=== PATIENT | female | born 1980 | race Caucasian/White ===

== ENCOUNTER → 2017-04-10 | Outpatient (CLI) | payer OTHER | LOC: RADMRIMAIN 09:47 | PROVIDERS: ATTEND Family Medicine | DX: Z53.9 Procedure and treatment not carried out, unspecified reason (principal) ==

== ENCOUNTER 2017-12-05 18:27 | Emergency (ER) | payer OTHER ==
[2017-12-05] MEDS ORDERED: RX INFO: IV CONTRAST WAS GIVEN 1 EACH MISC MISCELLANE PRN (19:16)
[2017-12-05] MEDS ORDERED: SODIUM CHLORIDE 0.9% 1,000 ML IV STA (19:16)
--- NOTE | 2017-12-05 19:17 | ED ---
General Adult HPI - General Source: patient, RN notes reviewed, old records reviewed Mode of arrival: ambulatory Limitations: no limitations <Sharan Newton - Last Filed: 12/05/17 21:34> <Erna Mahoney - Last Filed: 12/05/17 23:14> - General Chief complaint: Dizziness Stated complaint: Dizziness,Headaches Time Seen by Provider: 12/05/17 19:09 - History of Present Illness Initial comments: This is a 37-year-old female to the ER for evaluation of headache and dizziness. Patient is not no fevers. Patient states she feels dyspneic had of near syncopal. Symptoms for 2-3 both refill at this time. Patient states the symptoms are mildly worse. She denies any other medications. She's been taking some medications for sinus infection with no improvement in her symptoms (Sharan Newton) - Related Data Home Medications Medication Instructions Recorded Confirmed Ranitidine HCl [Zantac] 150 mg PO DAILY 03/25/14 12/05/17 Loratadine [Claritin] 10 mg PO DAILY 12/05/17 12/05/17 Previous Rx's Medication Instructions Recorded Mometasone Furoate [Nasonex Nasal 1 spray EA NOSTRIL DAILY #1 bottle 12/05/17 [place]] Allergies Allergy/AdvReac Type Severity Reaction Status Date / Time prochlorperazine edisylate Allergy Unknown Verified 12/05/17 19:08 [From Compazine] prochlorperazine maleate Allergy Unknown Verified 12/05/17 19:08 [From Compazine] Review of Systems ROS Other: All systems not noted in ROS Statement are negative. <Sharan Newton - Last Filed: 12/05/17 21:34> ROS Other: All systems not noted in ROS Statement are negative. <Erna Mahoney - Last Filed: 12/05/17 23:14> ROS Statement: Those systems with pertinent positive or pertinent negative responses have been documented in the HPI. Past Medical History Past Medical History: GERD/Reflux Additional Past Medical History / Comment(s): pvc's History of Any Multi-Drug Resistant Organisms: None Reported Past Surgical History: No Surgical Hx Reported Past Psychological History: Anxiety Smoking Status: Former smoker Past Alcohol Use History: Occasional Past Drug Use History: None Reported <Sharan Newton - Last Filed: 12/05/17 21:34> General Exam Limitations: no limitations General appearance: alert, in no apparent distress Head exam: Present: atraumatic, normocephalic, normal inspection Eye exam: Present: normal appearance, PERRL, EOMI. Absent: scleral icterus, conjunctival injection, periorbital swelling ENT exam: Present: normal exam, mucous membranes moist Neck exam: Present: normal inspection. Absent: tenderness, meningismus, lymphadenopathy Respiratory exam: Present: normal lung sounds bilaterally. Absent: respiratory distress, wheezes, rales, rhonchi, stridor Cardiovascular Exam: Present: regular rate, normal rhythm, normal heart sounds. Absent: systolic murmur, diastolic murmur, rubs, gallop, clicks GI/Abdominal exam: Present: soft, normal bowel sounds. Absent: distended, tenderness, guarding, rebound, rigid Extremities exam: Present: normal inspection, full ROM, normal capillary refill. Absent: tenderness, pedal edema, joint swelling, calf tenderness Back exam: Present: normal inspection Neurological exam: Present: alert, oriented X3, CN II-XII intact Psychiatric exam: Present: normal affect, normal mood Skin exam: Present: warm, dry, intact, normal color. Absent: rash <Sharan Newton - Last Filed: 12/05/17 21:34> Course <Sharan Newton - Last Filed: 12/05/17 21:34> <Erna Mahoney - Last Filed: 12/05/17 23:14> Vital Signs 12/05/17 12/05/17 12/05/17 19:09 20:41 22:28 Temperature 98.3 F 98 F Pulse Rate 105 H 79 78 Respiratory 20 18 18 Rate Blood Pressure 162/99 132/76 130/75 O2 Sat by Pulse 99 99 98 Oximetry Patient was reassessed [place] [address] angiogram of the brain and CT brain was reviewed, it's unremarkable findings were discussed with the patient, patient was reexamined noticed some ALLERGIC rhinitis as well as mild sinusitis patient be prescribed the Nosenex and she will follow-up with her family doctor (Erna Mahoney) EKG Findings - EKG Comments: EKG Findings:: EKG shows sinus rhythm rate of 73, VT 134, QRS 92, QTc 478 <Sharan Newton - Last Filed: 12/05/17 21:34> Medical Decision Making - Lab Data Result diagrams: 12/05/17 20:15 12/05/17 20:15 <Sharan Newton - Last Filed: 12/05/17 21:34> - Lab Data Result diagrams: 12/05/17 20:15 12/05/17 20:15 <Erna Mahoney - Last Filed: 12/05/17 23:14> - Lab Data Lab Results 12/05/17 12/05/17 12/05/17 Range/Units 20:15 20:15 20:15 WBC 8.5 (3.8-10.6) k/uL RBC 4.66 (3.80-5.40) m/uL Hgb 14.1 (11.4-16.0) gm/dL Hct 42.1 (34.0-46.0) % MCV 90.3 (80.0-100.0) fL MCH 30.3 (25.0-35.0) pg MCHC 33.5 (31.0-37.0) g/dL RDW 12.7 (11.5-15.5) % Plt Count 270 (150-450) k/uL Neutrophils % 70 % Lymphocytes % 22 % Monocytes % 5 % Eosinophils % 2 % Basophils % 0 % Neutrophils # 6.0 (1.3-7.7) k/uL Lymphocytes # 1.8 (1.0-4.8) k/uL Monocytes # 0.4 (0-1.0) k/uL Eosinophils # 0.2 (0-0.7) k/uL Basophils # 0.0 (0-0.2) k/uL PT 10.3 (9.0-12.0) sec INR 1.1 (<1.2) APTT 22.6 (22.0-30.0) sec Sodium 147 H (137-145) mmol/L Potassium 3.9 (3.5-5.1) mmol/L Chloride 107 (98-107) mmol/L Carbon Dioxide 23 (22-30) mmol/L Anion Gap 17 mmol/L BUN 13 (7-17) mg/dL Creatinine 0.70 (0.52-1.04) mg/dL Est GFR (CKD-EPI)AfAm >90 (>60 ml/min/1.73 sqM) Est GFR (CKD-EPI)NonAf >90 (>60 ml/min/1.73 sqM) Glucose 95 (74-99) mg/dL Calcium 10.3 H (8.4-10.2) mg/dL Phosphorus 3.8 (2.5-4.5) mg/dL Magnesium 2.2 (1.6-2.3) mg/dL Total Bilirubin 0.5 (0.2-1.3) mg/dL AST 51 H (14-36) U/L ALT 78 H (9-52) U/L Alkaline Phosphatase 102 (38-126) U/L Total Creatine Kinase (30-135) U/L CK-MB (CK-2) (0.0-2.4) ng/mL CK-MB (CK-2) Rel Index Troponin I (0.000-0.034) ng/mL Total Protein 8.2 (6.3-8.2) g/dL Albumin 5.1 H (3.5-5.0) g/dL Urine Color Urine Appearance (Clear) Urine pH (5.0-8.0) Ur Specific [place] (1.001-1.035) Urine Protein (Negative) Urine Glucose (UA) (Negative) Urine Ketones (Negative) Urine Blood (Negative) Urine Nitrite (Negative) Urine Bilirubin (Negative) Urine Urobilinogen (<2.0) mg/dL Ur Leukocyte Esterase (Negative) Urine RBC (0-5) /hpf Urine WBC (0-5) /hpf Ur Squamous Epith Cells (0-4) /hpf Urine Mucus (None) /hpf 12/05/17 12/05/17 Range/Units 20:15 20:15 WBC (3.8-10.6) k/uL RBC (3.80-5.40) m/uL Hgb (11.4-16.0) gm/dL Hct (34.0-46.0) % MCV (80.0-100.0) fL MCH (25.0-35.0) pg MCHC (31.0-37.0) g/dL RDW (11.5-15.5) % Plt Count (150-450) k/uL Neutrophils % % Lymphocytes % % Monocytes % % Eosinophils % % Basophils % % Neutrophils # (1.3-7.7) k/uL Lymphocytes # (1.0-4.8) k/uL Monocytes # (0-1.0) k/uL Eosinophils # (0-0.7) k/uL Basophils # (0-0.2) k/uL PT (9.0-12.0) sec INR (<1.2) APTT (22.0-30.0) sec Sodium (137-145) mmol/L Potassium (3.5-5.1) mmol/L Chloride (98-107) mmol/L Carbon Dioxide (22-30) mmol/L Anion Gap mmol/L BUN (7-17) mg/dL Creatinine (0.52-1.04) mg/dL Est GFR (CKD-EPI)AfAm (>60 ml/min/1.73 sqM) Est GFR (CKD-EPI)NonAf (>60 ml/min/1.73 sqM) Glucose (74-99) mg/dL Calcium (8.4-10.2) mg/dL Phosphorus (2.5-4.5) mg/dL Magnesium (1.6-2.3) mg/dL Total Bilirubin (0.2-1.3) mg/dL AST (14-36) U/L ALT (9-52) U/L Alkaline Phosphatase (38-126) U/L Total Creatine Kinase 62 (30-135) U/L CK-MB (CK-2) <0.2 (0.0-2.4) ng/mL CK-MB (CK-2) Rel Index Troponin I <0.012 (0.000-0.034) ng/mL Total Protein (6.3-8.2) g/dL Albumin (3.5-5.0) g/dL Urine Color Light Yellow Urine Appearance Clear (Clear) Urine pH 5.0 (5.0-8.0) Ur Specific [place] 1.007 (1.001-1.035) Urine Protein Negative (Negative) Urine Glucose (UA) Negative (Negative) Urine Ketones Negative (Negative) Urine Blood Moderate H (Negative) Urine Nitrite Negative (Negative) Urine Bilirubin Negative (Negative) Urine Urobilinogen <2.0 (<2.0) mg/dL Ur Leukocyte Esterase Negative (Negative) Urine RBC 36 H (0-5) /hpf Urine WBC 12 H (0-5) /hpf Ur Squamous Epith Cells <1 (0-4) /hpf Urine Mucus Rare H (None) /hpf Disposition <Sharan Newton - Last Filed: 12/05/17 21:34> Is patient prescribed a controlled substance at d/c from ED?: No If prescribed controlled substance>3 days was MAPS reviewed?: No When asked, does pt state using other controlled substances?: No <Erna Mahoney - Last Filed: 12/05/17 23:14> Clinical Impression: Allergic rhinitis Disposition: HOME SELF-CARE Condition: Good Instructions: Dizziness (ED) Prescriptions: Mometasone Furoate [Nasonex Nasal [place]] 1 spray EA NOSTRIL DAILY #1 bottle Referrals: Solo Petty MD [Primary Care Provider] - 1-2 days
[2017-12-05 20:23] LABS: Basophils % (A) 0 %; Eosinophils # (A) 0.2 k/uL (0-0.7); Eosinophils % (A) 2 %; HCT 42.1 % (34.0-46.0); HGB 14.1 gm/dL (11.4-16.0); Lymphocytes # (A) 1.8 k/uL (1.0-4.8); Lymphocytes % (A) 22 %; MCH 30.3 pg (25.0-35.0); MCHC 33.5 g/dL (31.0-37.0); MCV 90.3 fL (80.0-100.0); Monocytes # (A) 0.4 k/uL (0-1.0); Monocytes % (A) 5 %; Neutrophils % (A) 70 %; Platelet Count 270 k/uL (150-450); RBC 4.66 m/uL (3.80-5.40); RDW 12.7 % (11.5-15.5); WBC 8.5 k/uL (3.8-10.6)
[2017-12-05 20:28] LABS: Appearance,Urine Clear (Clear); Bilirubin,Urine Negative (Negative); Blood,Urine Moderate (Negative); Color,Urine Light Yellow; Glucose,Urine (UA) Negative (Negative); Ketones,Urine Negative (Negative); Leukocyte Esterase,Urine Negative (Negative); Mucus,Urine Rare /hpf; Nitrite,Urine Negative (Negative); Protein,Urine Negative (Negative); RBC,Urine 36 /hpf (0-5); Specific Gravity,Urine 1.007 (1.001-1.035); Squamous Epithelial Cell,Urine <1 /hpf (0-4); Urobilinogen,Urine <2.0 mg/dL (<2.0); WBC,Urine 12 /hpf (0-5)
[2017-12-05 20:33] LABS: INR 1.1 (<1.2); Partial Thromboplastin Time 22.6 sec (22.0-30.0); Prothrombin Time 10.3 sec (9.0-12.0)
[2017-12-05 20:34] LABS: ALT 78 U/L (9-52); AST 51 U/L (14-36); Albumin 5.1 g/dL (3.5-5.0); Alkaline Phosphatase 102 U/L (38-126); Anion Gap 17 mmol/L; Blood Urea Nitrogen 13 mg/dL (7-17); Calcium 10.3 mg/dL (8.4-10.2); Carbon Dioxide 23 mmol/L (22-30); Chloride 107 mmol/L (98-107); Glucose 95 mg/dL (74-99); Magnesium 2.2 mg/dL (1.6-2.3); Phosphorus 3.8 mg/dL (2.5-4.5); Potassium 3.9 mmol/L (3.5-5.1); Sodium 147 mmol/L (137-145); Total Bilirubin 0.5 mg/dL (0.2-1.3); Total Protein 8.2 g/dL (6.3-8.2)
[2017-12-05 20:41] VITALS: RESP 18
[2017-12-05 20:45] LABS: Creatine Kinase 62 U/L (30-135)
[2017-12-05 20:58] LABS: Creatine Kinase MB <0.2 ng/mL (0.0-2.4); Troponin I <0.012 ng/mL (0.000-0.034)
--- NOTE | 2017-12-05 22:21 | CT ---
EXAMINATION TYPE: CT angio head neck DATE OF EXAM: 12/05/2017 HISTORY: Headache today. COMPARISON: NONE CT DLP: 219.3 mGycm. Automated Exposure Control for Dose Reduction was Utilized. TECHNIQUE: CTA scan of the neck is performed with IV Contrast, patient injected with 65 mL of Isovue 370, axial images are obtained, coronal and sagittal reformatted images are reviewed. Three-D recons tructed images are created on an independent workstation and reviewed. FINDINGS: There is normal branching pattern of the great vessels on the aortic arch. The left carotid artery hill s origin on the innominate artery. There is bilateral vertebral artery flow. Left vertebral artery sl ightly larger than the right. There is arterial flow in the common internal and external carotid harrison radhika bilaterally. There is no evidence of arterial dissection. Internal carotid arteries are widely p atent. There is arterial flow in the vertebrobasilar artery system. There is arterial flow in the anterior m iddle and posterior cerebral arteries. There is no mass effect. There is no sign of aneurysm or neova scularity. There is normal contrast opacification of the venous sinuses. There is bilateral patency o f the posterior communicating arteries. I see no evidence of intracranial aneurysm or stenosis. There is no evidence of a cortical infarct. There is no pathologic enhancement. CONCLUSION: Normal CT angiogram of the neck. Normal CT aneurysm of the brain.
--- NOTE | 2017-12-05 22:23 | CT ---
EXAMINATION TYPE: CT brain wo con DATE OF EXAM: 12/05/2017 COMPARISON: NONE HISTORY: Headache today. CT DLP: 934 mGycm. Automated Exposure Control for Dose Reduction was Utilized. TECHNIQUE: CT scan of the head is performed without contrast. FINDINGS: Ventricles and sulci appear normal. There is no mass effect nor midline shift. There is no sign of intracranial hemorrhage. The calvarium is intact. There is some debris in the external audito ry canals. CONCLUSION: negative CT scan of the brain.
[2017-12-05 22:28] VITALS: BP 130/75; PULSE 78; TEMP 98
== END 2017-12-05 23:20 | disposition home or self-care (01) ==
LOC: EC 18:27
DX: J30.9 Allergic rhinitis, unspecified (principal); K21.9 Gastro-esophageal reflux disease without esophagitis; Z87.891 Personal history of nicotine dependence; Z79.899 Other long term (current) drug therapy; Z88.8 Allergy status to other drugs, medicaments and biological substances
CPT/HCPCS: 36415; 93005; 80053; 82550; 82553; 83735; 84100; 84484; 85025; 85610; 85730; 81001; 87086; 70496; 70450; 70498; 99285; 96360; Q9967

== ENCOUNTER → 2018-01-07 | Outpatient (CLI) | payer OTHER ==
--- NOTE | 2018-01-07 09:48 | US ---
EXAMINATION TYPE: US gallbladder DATE OF EXAM: 01/07/2018 COMPARISON: NONE CLINICAL HISTORY: R10.9 ABD Pain, R10.10 upper abdominal pain. Upper abd pain for a few months, naus ea, history of reflux. EXAM MEASUREMENTS: Liver Length: 14.9 cm Gallbladder Wall: 0.5 cm CBD: 0.6 cm Right Kidney: 9.8 x 5.2 x 4.6 cm Pancreas: wnl Liver: wnl Gallbladder: +ANIYA sign seen, multiple shadowing stones with thickened wall Evidence for sonographic Cantu's sign: NO CBD: wnl Right Kidney: inferior pole simple cyst = 1.1cm Visualized pancreas is slightly heterogeneous without obvious mass. Visualized liver shows no worriso me hepatic mass or ductal dilatation. Some heterogeneity however is present. Scanning of level of gal lbladder fossa shows curvilinear shadowing area felt to reflect a stone filled contracted gallbladder . Wall may be mildly thickened up to 5 mm though difficult to accurately measure. No pericholecystic fluid is seen. IMPRESSION: Suspect stone filled contracted gallbladder without convincing secondary ultrasound evide nce for acute cholecystitis however in patient with right upper quadrant pain it cannot BE entirely e xcluded.
--- NOTE | 2018-01-07 09:56 | FL ---
EXAMINATION TYPE: FL UGI air DATE OF EXAM: 01/07/2018 COMPARISON: NONE HISTORY: Epigastric pain and nausea for 3 months. History of reflux on daily medication for over a ye ar per patient. TECHNIQUE: A double contrast UGI study is performed. 46 seconds of fluoroscopic time was utilized du ring procedure. Preprocedure coordinator of genetic services image was acquired. 26 spot images are saved during procedure. 3 p ost procedure images are acquired. FINDINGS: Textile Coating Machine Operator image of the abdomen shows overall nonobstructive bowel gas pattern. Scattered pelvi c phleboliths and pelvic IUD are incidentally noted. The esophagus shows normal motility and emptying into the stomach. No evidence of hiatal hernia or s tricture noted. The stomach shows normal distensibility, peristalsis, and mucosal folds. No evidence of any mass or ulcer disease. Several episodes of gastroesophageal reflux were seen during real-time performance of study. The duodenal bulb, sweep, and proximal small bowel loops are unremarkable. IMPRESSION: Gastroesophageal reflux visualized otherwise unremarkable study.
== END | disposition home or self-care (01) ==
LOC: RADUSMAIN 08:27
PROVIDERS: ATTEND Family Medicine
DX: R10.10 Upper abdominal pain, unspecified (principal)
CPT/HCPCS: 74246; 76705

== ENCOUNTER → 2018-02-11 | Outpatient (CLI) | payer OTHER ==
[2018-02-11 14:30] LABS: ALT 42 U/L (9-52); AST 24 U/L (14-36); Albumin 4.9 g/dL (3.5-5.0); Alkaline Phosphatase 69 U/L (38-126); Amylase 46 U/L (30-110); Anion Gap 11 mmol/L; Basophils % (A) 0 %; Blood Urea Nitrogen 10 mg/dL (7-17); Calcium 10.2 mg/dL (8.4-10.2); Carbon Dioxide 28 mmol/L (22-30); Chloride 101 mmol/L (98-107); Eosinophils # (A) 0.1 k/uL (0-0.7); Eosinophils % (A) 1 %; Glucose 92 mg/dL (74-99); HCT 39.9 % (34.0-46.0); HGB 13.2 gm/dL (11.4-16.0); Lipase 86 U/L (23-300); Lymphocytes # (A) 1.7 k/uL (1.0-4.8); Lymphocytes % (A) 26 %; MCH 30.8 pg (25.0-35.0); MCHC 33.2 g/dL (31.0-37.0); MCV 92.6 fL (80.0-100.0); Mean Platelet Volume 7.8; Monocytes # (A) 0.3 k/uL (0-1.0); Monocytes % (A) 5 %; Neutrophils # (A) 4.4 k/uL (1.3-7.7); Neutrophils % (A) 66 %; Platelet Count 285 k/uL (150-450); Potassium 4.5 mmol/L (3.5-5.1); RDW 13.1 % (11.5-15.5); Sodium 140 mmol/L (137-145); Total Bilirubin 0.5 mg/dL (0.2-1.3); Total Protein 7.8 g/dL (6.3-8.2); WBC 6.6 k/uL (3.8-10.6)
== END | disposition home or self-care (01) ==
LOC: LABWHC1 13:50
PROVIDERS: ATTEND Family Medicine
DX: R10.9 Unspecified abdominal pain (principal); R53.83 Other fatigue
CPT/HCPCS: 36415; 80053; 82150; 83690; 85025

== ENCOUNTER → 2018-10-13 | Outpatient (CLI) | payer OTHER ==
--- NOTE | 2018-10-13 15:55 | US ---
EXAMINATION TYPE: US pelvic complete DATE OF EXAM: 10/13/2018 COMPARISON: NONE CLINICAL HISTORY: N93.8 DUB. cycles still come at regular time, but appears to be heavier, IUD in charles ce 2 years ago, TECHNIQUE: TA. Transabdominal sonographic images of the pelvis were acquired. Date of LMP: 10/05/2018 EXAM MEASUREMENTS: Uterus: 11.1 x 5.7 x 4.8 cm Endometrial Stripe: 0.9 cm Right Ovary: 3.2 x 2.1 x 2.1 cm Left Ovary: 3.5 x 2.1 x 2.3 cm 1. Uterus: Anteverted wnl 2. Endometrium: IUD seen 3. Right Ovary: wnl 4. Left Ovary: wnl 5. Bilateral Adnexa: wnl 6. Posterior cul-de-sac: wnl IMPRESSION: Centrally and appropriately placed intrauterine device. No abnormal endometrial thickenin g.
[2018-10-13 17:09] LABS: T4, Free (Free Thyroxine) 0.91 ng/dL (0.78-2.19)
== END | disposition home or self-care (01) ==
LOC: RADUSWWP 15:25
PROVIDERS: ATTEND Obstetrics & Gynecology
DX: N93.8 Other specified abnormal uterine and vaginal bleeding (principal); Z13.29 Encounter for screening for other suspected endocrine disorder; Z97.5 Presence of (intrauterine) contraceptive device
CPT/HCPCS: 36415; 76856; 82670; 83001; 83002; 84146; 84403; 84439; 84443; 84479

== ENCOUNTER 2019-03-27 08:33 | Day surgery (SDC) | payer OTHER ==
[2019-03-24 09:14] VITALS: BMI 25.8
[~2019-03-27 08:33] MED LIST: LACTATED RINGERS 1,000 ML IV SCH; LIDOCAINE 1% 20 ML VIAL (10MG/ML) FOR IV START INTRADERMA PRN
[2019-03-27 09:10] VITALS: TEMP 97.1
[2019-03-27] MEDS ORDERED: PROPOFOL 10 MG/ML 20 ML VIAL IV ONE (09:34)
[2019-03-27] MEDS ORDERED: LIDOCAINE 1% INJ 10MG/ML (20 ML MDV) ONE (09:34)
--- NOTE | 2019-03-27 09:45 | P.GSHP ---
History of Present Illness H&P Date: 03/27/19 Chief Complaint: GERD This is a 39-year-old female with issues with GERD. Patient presents today for EGD. Past Medical History Past Medical History: GERD/Reflux Additional Past Medical History / Comment(s): pvc's, History of Any Multi-Drug Resistant Organisms: None Reported Past Surgical History: Cholecystectomy, Hernia Repair Additional Past Surgical History / Comment(s): umbilical hernia repair as Past Anesthesia/Blood Transfusion Reactions: Motion Sickness Additional Past Anesthesia/Blood Transfusion Reaction / Comment(s): clausterphobia. Smoking Status: Former smoker - Past Family History Mother Family Medical History: Myocardial Infarction ([place]) Additional Family Medical History / Comment(s): had first mi at ge 50 or 51 and 2nd mi at 55 or 56. smoker, brain anuerysm Father History Unknown: Yes Medications and Allergies Home Medications Medication Instructions Recorded Confirmed Type Allergy Eye Drops 1 drop BOTH EYES DAILY 03/24/19 03/27/19 History Loratadine [Claritin] 10 mg PO DAILY 03/24/19 03/27/19 History Multivitamins, Thera [Multivitamin 1 tab PO DAILY 03/24/19 03/27/19 History (formulary)] Nasal [place] 1 spray EA NOSTRIL DAILY 03/24/19 03/27/19 History Reflux Med 1 tab PO DAILY 03/24/19 03/27/19 History Allergies Allergy/AdvReac Type Severity Reaction Status Date / Time prochlorperazine edisylate Allergy Unknown Verified 03/27/19 08:47 [From Compazine] prochlorperazine maleate Allergy Unknown Verified 03/27/19 08:47 [From Compazine] Surgical - Exam Vital Signs Temp Pulse Resp BP Pulse Ox 97.1 F L 78 16 135/76 100 03/27/19 08:54 03/27/19 08:54 03/27/19 08:54 03/27/19 08:54 03/27/19 08:54 - General well developed, well nourished, no distress - Eyes PERRL - ENT normal pinna - Neck no masses - Respiratory normal expansion - Cardiovascular Rhythm: regular - Abdomen Abdomen: soft, non tender Assessment and Plan Assessment: GERD. We'll perform EGD.
--- NOTE | 2019-03-27 09:52 | P.OP ---
Date of Procedure: 03/27/19 Preoperative Diagnosis: GERD Postoperative Diagnosis: Antral gastritis No evidence of hiatal hernia Procedure(s) Performed: EGD Anesthesia: MAC Surgeon: Nicola Magallanes Pathology: other (Antrum) Condition: stable Disposition: PACU Description of Procedure: The patient's placed on the endoscopy table in the lateral position. She received IV sedation. The gastroscope placed oropharynx and passed in the esophagus into the stomach. Scope was then placed through the pylorus. The first and second portion of duodenum appeared normal. Scope was then brought back the antrum and this was mildly inflamed. A biopsies performed. Scope was unretroflexed and remainder of the stomach appeared normal. There is no significant hiatal hernia. The GE junction was at 40 cm. The distal esophagus appeared normal. The proximal esophagus appeared normal. Scope withdrawn for patient.
[2019-03-27 10:24] VITALS: BP 130/90; PULSE 72; RESP 18
== END 2019-03-27 10:31 | disposition home or self-care (01) ==
LOC: ORWHC2ENDO 08:33
PROVIDERS: ATTEND Surgery
DX: K29.50 Unspecified chronic gastritis without bleeding (principal); K21.9 Gastro-esophageal reflux disease without esophagitis; F41.9 Anxiety disorder, unspecified; F40.240 Claustrophobia; Z79.899 Other long term (current) drug therapy; Z88.8 Allergy status to other drugs, medicaments and biological substances; Z87.891 Personal history of nicotine dependence; Z86.79 Personal history of other diseases of the circulatory system; Z90.49 Acquired absence of other specified parts of digestive tract; Z98.890 Other specified postprocedural states; Z82.49 Family history of ischemic heart disease and other diseases of the circulatory system
CPT/HCPCS: 43239; 81025; 88305; J2001; J2704

== ENCOUNTER 2019-08-08 04:42 | Emergency (ER) | payer BC, OTHER ==
[2019-08-08 04:51] VITALS: RESP 18
--- NOTE | 2019-08-08 05:34 | ED ---
Chest Pain HPI - General Source: patient Mode of arrival: ambulatory Limitations: no limitations - History of Present Illness MD Complaint: chest pain Onset/Timin -: month(s) Onset: during rest Pain Location: substernal Pain Radiation: LUE Severity: moderate Quality: aching Consistency: constant Improves With: nothing Worsens With: nothing Treatments Prior to Arrival: none <Mehrdad Valdez - Last Filed: 08/08/19 07:28> <Sharan Stack - Last Filed: 08/08/19 08:36> - General Chief Complaint: Chest Pain Stated Complaint: Chest Pain Time Seen by Provider: 08/08/19 05:06 - Related Data Home Medications Medication Instructions Recorded Confirmed Allergy Eye Drops 1 drop BOTH EYES DAILY 03/24/19 03/27/19 Loratadine [Claritin] 10 mg PO DAILY 03/24/19 03/27/19 Multivitamins, Thera [Multivitamin 1 tab PO DAILY 03/24/19 03/27/19 (formulary)] Nasal [place] 1 spray EA NOSTRIL DAILY 03/24/19 03/27/19 Reflux Med 1 tab PO DAILY 03/24/19 03/27/19 Previous Rx's Medication Instructions Recorded Famotidine [Pepcid] 20 mg PO BID #14 tablet 08/08/19 Allergies Allergy/AdvReac Type Severity Reaction Status Date / Time prochlorperazine edisylate Allergy Unknown Verified 03/27/19 08:47 [From Compazine] prochlorperazine maleate Allergy Unknown Verified 03/27/19 08:47 [From Compazine] Review of Systems ROS Other: All systems not noted in ROS Statement are negative. Constitutional: Denies: fever, chills Respiratory: Denies: cough, dyspnea Cardiovascular: Reports: as per HPI, chest pain. Denies: palpitations, edema, syncope Gastrointestinal: Denies: abdominal pain, nausea, vomiting Genitourinary: Denies: dysuria Musculoskeletal: Denies: back pain Skin: Denies: rash Neurological: Denies: headache, weakness, numbness <Mehrdad Valdez - Last Filed: 08/08/19 07:28> ROS Other: All systems not noted in ROS Statement are negative. <Sharan Stack - Last Filed: 08/08/19 08:36> ROS Statement: Those systems with pertinent positive or pertinent negative responses have been documented in the HPI. EKG Findings - EKG Results: EKG: interpreted by ERMD, sinus rhythm (Rate 78 bpm), normal axis, normal QRS, normal ST/T - Blocks, Vaughan, Hypertrophy, ST Abn: Repolarization changes or abnormalities: Q-T interval prolongation <SantiagoMehrdad armendariz Last Filed: 08/08/19 07:28> Past Medical History Past Medical History: GERD/Reflux Additional Past Medical History / Comment(s): pvc's, History of Any Multi-Drug Resistant Organisms: None Reported Past Surgical History: Cholecystectomy, Hernia Repair Additional Past Surgical History / Comment(s): umbilical hernia repair as Past Anesthesia/Blood Transfusion Reactions: Motion Sickness Additional Past Anesthesia/Blood Transfusion Reaction / Comment(s): clausterphobia. Past Psychological History: Anxiety Smoking Status: Former smoker Past Alcohol Use History: Occasional Past Drug Use History: None Reported - Past Family History Mother Family Medical History: Myocardial Infarction ([place]) Additional Family Medical History / Comment(s): had first mi at ge 50 or 51 and 2nd mi at 55 or 56. smoker, brain anuerysm Father History Unknown: Yes <SantiagoMehrdad armendariz Last Filed: 08/08/19 07:28> General Exam Limitations: no limitations General appearance: alert, in no apparent distress Head exam: Present: atraumatic, normocephalic Eye exam: Present: normal appearance. Absent: scleral icterus, conjunctival injection Respiratory exam: Present: normal lung sounds bilaterally. Absent: respiratory distress, wheezes, rales, rhonchi, stridor, chest wall tenderness, accessory muscle use, decreased breath sounds, prolonged expiratory Cardiovascular Exam: Present: regular rate, normal rhythm, normal heart sounds. Absent: systolic murmur, diastolic murmur, rubs, gallop GI/Abdominal exam: Present: soft. Absent: distended, tenderness, guarding, rebound, rigid, mass Extremities exam: Present: normal inspection, normal capillary refill. Absent: pedal edema, calf tenderness Back exam: Present: normal inspection. Absent: CVA tenderness (R), CVA tenderness (L), vertebral tenderness Neurological exam: Present: alert Skin exam: Present: warm, dry, intact, normal color. Absent: rash <José MiguelMehrdad - Last Filed: 08/08/19 07:28> Course Vital Signs 08/08/19 08/08/19 08/08/19 04:46 06:09 08:21 Temperature 97.8 F 98.7 F Pulse Rate 95 73 95 Respiratory 18 18 18 Rate Blood Pressure 157/99 118/77 124/68 O2 Sat by Pulse 100 100 99 Oximetry Chest Pain MDM <Sharan Stack - Last Filed: 08/08/19 08:36> - MDM I went into reevaluate the patient. Patient's been asymptomatic. Patient states she normally gets this chest discomfort for just a few seconds and then it goes away. Patient states she also occasionally has palpitations with it and she has a history of PVCs. Patient denies any other associated symptoms with this pain. (Sharan Stack) Disposition Is patient prescribed a controlled substance at d/c from ED?: No <Mehrdad Valdez - Last Filed: 08/08/19 07:28> Is patient prescribed a controlled substance at d/c from ED?: No Time of Disposition: 08:36 <Sharan Stack - Last Filed: 08/08/19 08:36> Clinical Impression: Atypical chest pain, Palpitations, Prolonged Q-T interval on ECG Disposition: HOME SELF-CARE Condition: Good Instructions (If sedation given, give patient instructions): Heart Palpitations (ED) Prescriptions: Famotidine [Pepcid] 20 mg PO BID #14 tablet Referrals: None,Stated [Primary Care Provider] - 1-2 days
--- NOTE | 2019-08-08 05:47 | XR ---
EXAMINATION TYPE: XR chest 2V DATE OF EXAM: 08/08/2019 COMPARISON: 07/04/2018 HISTORY: Lethargy TECHNIQUE: 2 views FINDINGS: Heart and mediastinum are normal. Lungs are clear. Diaphragm is normal. Bony thorax appears normal. IMPRESSION: Normal chest. No change.
[2019-08-08 06:28] LABS: Basophils % (A) 1 %; Eosinophils # (A) 0.3 k/uL (0-0.7); Eosinophils % (A) 3 %; HCT 38.4 % (34.0-46.0); HGB 13.1 gm/dL (11.4-16.0); Lymphocytes # (A) 1.8 k/uL (1.0-4.8); Lymphocytes % (A) 22 %; MCH 31.3 pg (25.0-35.0); MCHC 34.2 g/dL (31.0-37.0); MCV 91.5 fL (80.0-100.0); Mean Platelet Volume 10.4; Monocytes # (A) 0.4 k/uL (0-1.0); Monocytes % (A) 6 %; Neutrophils # (A) 5.3 k/uL (1.3-7.7); Neutrophils % (A) 67 %; Platelet Count 189 k/uL (150-450); RDW 13.1 % (11.5-15.5)
[2019-08-08 08:05] LABS: ALT 22 U/L (4-34); AST 37 U/L (14-36); African American GFR (CKD) >90 (>60 ml/min/1.73 sqM); Albumin 4.7 g/dL (3.5-5.0); Alkaline Phosphatase 75 U/L (38-126); Anion Gap 12 mmol/L; Blood Urea Nitrogen 12 mg/dL (7-17); Calcium 9.6 mg/dL (8.4-10.2); Carbon Dioxide 21 mmol/L (22-30); Chloride 105 mmol/L (98-107); Glucose 96 mg/dL (74-99); Magnesium 2.1 mg/dL (1.6-2.3); Non-African American GFR(CKD) >90 (>60 ml/min/1.73 sqM); Sodium 138 mmol/L (137-145); Total Bilirubin 0.7 mg/dL (0.2-1.3); Total Protein 7.8 g/dL (6.3-8.2)
[2019-08-08 08:06] LABS: Potassium 4.8 mmol/L (3.5-5.1)
[2019-08-08 08:10] LABS: D-Dimer 0.46 mg/L FEU (<0.60); INR 0.9 (<1.2); Partial Thromboplastin Time 24.6 sec (22.0-30.0); Prothrombin Time 10.1 sec (9.0-12.0)
[2019-08-08 08:22] VITALS: BP 124/68; PULSE 95; TEMP 98.7
== END 2019-08-08 08:46 | disposition home or self-care (01) ==
LOC: EC 04:42
DX: R07.89 Other chest pain (principal); R00.2 Palpitations; R94.31 Abnormal electrocardiogram [ECG] [EKG]; K21.9 Gastro-esophageal reflux disease without esophagitis; Z86.79 Personal history of other diseases of the circulatory system; Z87.891 Personal history of nicotine dependence; Z82.49 Family history of ischemic heart disease and other diseases of the circulatory system; Z79.899 Other long term (current) drug therapy; Z88.8 Allergy status to other drugs, medicaments and biological substances
CPT/HCPCS: 36415; 71046; 80053; 83735; 83880; 84484; 85025; 85379; 85610; 85730; 93005; 99285

== ENCOUNTER 2020-05-15 17:15 | Observation (INO) | payer OTHER ==
[2020-05-15] MEDS ORDERED: NITROGLYCERIN OINT 1 INCH/GM PACKET TOPICAL STA (17:37)
[2020-05-15] MEDS ORDERED: SODIUM CHLORIDE 0.9% 1,000 ML IV STA (17:37)
--- NOTE | 2020-05-15 17:39 | ED ---
General Adult HPI - General Chief complaint: Chest Pain Stated complaint: chest pain Time Seen by Provider: 05/15/20 17:23 Source: patient, RN/MD, RN notes reviewed, old records reviewed (Reviewed EKG from Dr. Morataya.) Mode of arrival: wheelchair Limitations: no limitations - History of Present Illness Initial comments: Patient is a pleasant 40-year-old female presenting to the emergency department chest discomfort. Patient has had mild symptoms over the past couple months, worse over the past few days. Discomfort is currently 2/10. Discomfort feels like indigestion without radiation. No associated dyspnea. Patient at times feels nauseated. No diaphoresis. - Related Data Home Medications Medication Instructions Recorded Confirmed Aspirin [Adult Low Dose Aspirin EC] 81 mg PO DAILY 05/15/20 05/15/20 Omeprazole Magnesium [PriLOSEC OTC] 20 mg PO DAILY 05/15/20 05/15/20 Allergies Allergy/AdvReac Type Severity Reaction Status Date / Time prochlorperazine edisylate Allergy Unknown Verified 05/15/20 18:26 [From Compazine] prochlorperazine maleate Allergy Unknown Verified 05/15/20 18:26 [From Compazine] Review of Systems ROS Statement: Those systems with pertinent positive or pertinent negative responses have been documented in the HPI. ROS Other: All systems not noted in ROS Statement are negative. Constitutional: Denies: fever Eyes: Denies: eye pain ENT: Denies: ear pain Respiratory: Denies: cough Cardiovascular: Reports: chest pain Endocrine: Denies: fatigue Gastrointestinal: Denies: abdominal pain Genitourinary: Denies: dysuria Musculoskeletal: Denies: back pain Skin: Denies: rash Neurological: Denies: weakness Past Medical History Past Medical History: GERD/Reflux Additional Past Medical History / Comment(s): pvc's, History of Any Multi-Drug Resistant Organisms: None Reported Past Surgical History: Cholecystectomy, Hernia Repair Additional Past Surgical History / Comment(s): umbilical hernia repair as Past Anesthesia/Blood Transfusion Reactions: Motion Sickness Additional Past Anesthesia/Blood Transfusion Reaction / Comment(s): clausterphobia. Past Psychological History: Anxiety Smoking Status: Never smoker Past Alcohol Use History: Occasional Past Drug Use History: None Reported - Past Family History Mother Family Medical History: Myocardial Infarction ([place]) Additional Family Medical History / Comment(s): had first mi at 50 or 51 and 2nd mi at 55 or 56. smoker, brain anuerysm Father History Unknown: Yes General Exam Limitations: no limitations General appearance: alert, in no apparent distress Head exam: Present: normocephalic Eye exam: Present: normal appearance Neck exam: Present: normal inspection Respiratory exam: Present: normal lung sounds bilaterally. Absent: chest wall tenderness, accessory muscle use Cardiovascular Exam: Present: regular rate, normal rhythm, normal heart sounds Expanded Peripheral pulses: 2+: Radial (R), Radial (L), Dorsalis Pedis (R), Dorsalis Pedis (L) GI/Abdominal exam: Present: soft. Absent: tenderness Extremities exam: Present: normal inspection. Absent: pedal edema, calf tenderness Neurological exam: Present: alert Psychiatric exam: Present: normal affect, normal mood Skin exam: Present: normal color Course Vital Signs 05/15/20 05/15/20 17:18 18:53 Temperature 99.0 F Pulse Rate 99 101 H Respiratory 18 16 Rate Blood Pressure 144/90 124/81 O2 Sat by Pulse 100 99 Oximetry EKG Findings - EKG Comments: EKG Findings:: EKG shows normal sinus rhythm 83. [place] 132. QRS 84. QT 404. QTC 474. Normal axis. Normal QRS. Nonspecific ST-T. Medical Decision Making - Medical Decision Making Patient reevaluated and remains unchanged, symptoms remain mild, 2/10 discomfort. Patient and family updated on results and plan. Dr. Delcid has been paged for admission covering for Dr. Morataya. - Lab Data Result diagrams: 05/15/20 17:37 05/15/20 17:37 Lab Results 05/15/20 05/15/20 05/15/20 Range/Units 17:37 17:37 17:37 WBC 10.1 (3.8-10.6) k/uL RBC 4.36 (3.80-5.40) m/uL Hgb 13.4 (11.4-16.0) gm/dL Hct 40.6 (34.0-46.0) % MCV 93.0 (80.0-100.0) fL MCH 30.7 (25.0-35.0) pg MCHC 33.0 (31.0-37.0) g/dL RDW 12.7 (11.5-15.5) % Plt Count 244 (150-450) k/uL Neutrophils % 81 % Lymphocytes % 13 % Monocytes % 4 % Eosinophils % 1 % Basophils % 0 % Neutrophils # 8.2 H (1.3-7.7) k/uL Lymphocytes # 1.4 (1.0-4.8) k/uL Monocytes # 0.4 (0-1.0) k/uL Eosinophils # 0.1 (0-0.7) k/uL Basophils # 0.0 (0-0.2) k/uL PT 9.9 (9.0-12.0) sec INR 0.9 (<1.2) APTT 24.5 (22.0-30.0) sec Sodium 138 (137-145) mmol/L Potassium 3.9 (3.5-5.1) mmol/L Chloride 107 (98-107) mmol/L Carbon Dioxide 23 (22-30) mmol/L Anion Gap 8 mmol/L BUN 9 (7-17) mg/dL Creatinine 0.66 (0.52-1.04) mg/dL Est GFR (CKD-EPI)AfAm >90 (>60 ml/min/1.73 sqM) Est GFR (CKD-EPI)NonAf >90 (>60 ml/min/1.73 sqM) Glucose 102 H (74-99) mg/dL Calcium 9.7 (8.4-10.2) mg/dL Magnesium 2.1 (1.6-2.3) mg/dL Total Bilirubin 0.4 (0.2-1.3) mg/dL AST 24 (14-36) U/L ALT 18 (4-34) U/L Alkaline Phosphatase 64 (38-126) U/L Troponin I (0.000-0.034) ng/mL Total Protein 7.6 (6.3-8.2) g/dL Albumin 4.7 (3.5-5.0) g/dL 05/15/20 Range/Units 17:37 WBC (3.8-10.6) k/uL RBC (3.80-5.40) m/uL Hgb (11.4-16.0) gm/dL Hct (34.0-46.0) % MCV (80.0-100.0) fL MCH (25.0-35.0) pg MCHC (31.0-37.0) g/dL RDW (11.5-15.5) % Plt Count (150-450) k/uL Neutrophils % % Lymphocytes % % Monocytes % % Eosinophils % % Basophils % % Neutrophils # (1.3-7.7) k/uL Lymphocytes # (1.0-4.8) k/uL Monocytes # (0-1.0) k/uL Eosinophils # (0-0.7) k/uL Basophils # (0-0.2) k/uL PT (9.0-12.0) sec INR (<1.2) APTT (22.0-30.0) sec Sodium (137-145) mmol/L Potassium (3.5-5.1) mmol/L Chloride (98-107) mmol/L Carbon Dioxide (22-30) mmol/L Anion Gap mmol/L BUN (7-17) mg/dL Creatinine (0.52-1.04) mg/dL Est GFR (CKD-EPI)AfAm (>60 ml/min/1.73 sqM) Est GFR (CKD-EPI)NonAf (>60 ml/min/1.73 sqM) Glucose (74-99) mg/dL Calcium (8.4-10.2) mg/dL Magnesium (1.6-2.3) mg/dL Total Bilirubin (0.2-1.3) mg/dL AST (14-36) U/L ALT (4-34) U/L Alkaline Phosphatase (38-126) U/L Troponin I <0.012 (0.000-0.034) ng/mL Total Protein (6.3-8.2) g/dL Albumin (3.5-5.0) g/dL Disposition Clinical Impression: Chest pain Disposition: ADMITTED IP TO THIS HOSP Is patient prescribed a controlled substance at d/c from ED?: No Referrals: Negrita Morataya MD [Primary Care Provider] - 1-2 days Decision Time: 20:04
[2020-05-15] MEDS: ASPIRIN 81 MG PO STA ×2 (18:14→18:38)
[2020-05-15 18:54] VITALS: RESP 16
--- NOTE | 2020-05-15 19:03 | XR ---
EXAMINATION TYPE: XR chest 2V DATE OF EXAM: 05/15/2020 CLINICAL HISTORY: Midsternal chest pain for 5 to 6 days. TECHNIQUE: Frontal and lateral views of the chest are obtained. COMPARISON: 08/08/2019 chest radiograph FINDINGS: The cardiomediastinal silhouette is within normal limits for size. Pulmonary vasculature i s normal. There is no focal air space opacity, pleural effusion, or pneumothorax seen. The osseous st ructures are intact. IMPRESSION: No acute cardiopulmonary process.
[2020-05-15 19:24] LABS: Basophils % (A) 0 %; Eosinophils # (A) 0.1 k/uL (0-0.7); Eosinophils % (A) 1 %; HCT 40.6 % (34.0-46.0); HGB 13.4 gm/dL (11.4-16.0); Lymphocytes # (A) 1.4 k/uL (1.0-4.8); Lymphocytes % (A) 13 %; MCH 30.7 pg (25.0-35.0); Mean Platelet Volume 8.5; Monocytes # (A) 0.4 k/uL (0-1.0); Monocytes % (A) 4 %; Neutrophils # (A) 8.2 k/uL (1.3-7.7); Neutrophils % (A) 81 %; Platelet Count 244 k/uL (150-450); RBC 4.36 m/uL (3.80-5.40); RDW 12.7 % (11.5-15.5); WBC 10.1 k/uL (3.8-10.6)
[2020-05-15 19:35] LABS: ALT 18 U/L (4-34); AST 24 U/L (14-36); African American GFR (CKD) >90 (>60 ml/min/1.73 sqM); Albumin 4.7 g/dL (3.5-5.0); Alkaline Phosphatase 64 U/L (38-126); Anion Gap 8 mmol/L; Blood Urea Nitrogen 9 mg/dL (7-17); Calcium 9.7 mg/dL (8.4-10.2); Carbon Dioxide 23 mmol/L (22-30); Chloride 107 mmol/L (98-107); Glucose 102 mg/dL (74-99); Magnesium 2.1 mg/dL (1.6-2.3); Non-African American GFR(CKD) >90 (>60 ml/min/1.73 sqM); Potassium 3.9 mmol/L (3.5-5.1); Sodium 138 mmol/L (137-145); Total Bilirubin 0.4 mg/dL (0.2-1.3); Total Protein 7.6 g/dL (6.3-8.2)
[2020-05-15 19:36] LABS: INR 0.9 (<1.2); Partial Thromboplastin Time 24.5 sec (22.0-30.0); Prothrombin Time 9.9 sec (9.0-12.0)
[2020-05-15] MEDS ORDERED: NITROGLYCERIN SL TABS 0.4 MG TAB SUBLINGUAL PRN (20:04)
[2020-05-16] MEDS: NITROGLYCERIN OINT 1 INCH/GM PACKET TOPICAL SCH ×4 (00:25→16:30)
[2020-05-16 03:26] LABS: Cholesterol 160 mg/dL (<200); HDL Cholesterol 93 mg/dL (40-60); LDL Cholesterol,Calculated 41 mg/dL (0-99); Triglycerides 131 mg/dL (<150)
[2020-05-16] MEDS ORDERED: ACETAMINOPHEN TAB 500 MG TAB PO STA (06:25)
[2020-05-16] MEDS ORDERED: HYDROcodone/APAP 5-325MG 1 EACH TAB PO PRN (06:26)
[2020-05-16] MEDS: PANTOPRAZOLE 40 MG TABLET PO SCH (06:39)
--- NOTE | 2020-05-16 07:32 | P.CRDCN ---
History of Present Illness Consult date: 05/16/20 Chief complaint: Chest pain History of present illness: This is a pleasant 40-year-old female patient with no significant past medical history presented to the hospital complaining of chest discomfort. She describes overall atypical chest discomfort. The discomfort is mainly in the mid of the chest and described as sharp kind of discomfort without any radiation to the arms or neck or shoulders and without any associated symptoms of shortne ss of breath or dizziness or lightheadedness or any feeling of heart racing or fluttering or syncope. Clearly the chest discomfort is not exertion related. Sometimes she described the discomfort as indigestion kind of discomfort. No prior history of coronary artery disease and the patient does not have any risk factors for CAD including diabetes or hypertension or dyslipidemia. She used to smoke but she quit smoking long time ago. She does have a family history of coronary artery disease involving her mother. The EKG showed sinus rhythm without any significant ST or T-wave abnormalities. The cardiac enzymes were checked and came in to be unremarkable. The chest x-ray did not show any acute abnormalities. On examination the patient does have regular rhythm with a systolic murmur at the right and left upper sternal border. Past Medical History Past Medical History: GERD/Reflux Additional Past Medical History / Comment(s): pvc's, History of Any Multi-Drug Resistant Organisms: None Reported Past Surgical History: Cholecystectomy, Hernia Repair Additional Past Surgical History / Comment(s): umbilical hernia repair as Past Anesthesia/Blood Transfusion Reactions: Motion Sickness Additional Past Anesthesia/Blood Transfusion Reaction / Comment(s): clausterphobia. Past Psychological History: Anxiety Additional Psychological History / Comment(s): pt is independant. works as massage therpist. 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 Smoking Status: Never smoker Past Alcohol Use History: Occasional Additional Past Alcohol Use History / Comment(s): started smokiong at age 13 quit at age 35 was smoking 1.5 ppd Past Drug Use History: None Reported - Past Family History Mother Family Medical History: Myocardial Infarction ([place]) Additional Family Medical History / Comment(s): had first mi at ge 50 or 51 and 2nd mi at 55 or 56. smoker, brain anuerysm Father History Unknown: Yes Medications and Allergies Home Medications Medication Instructions Recorded Confirmed Type Aspirin [Adult Low Dose Aspirin EC] 81 mg PO DAILY 05/15/20 05/15/20 History Omeprazole Magnesium [PriLOSEC OTC] 20 mg PO DAILY 05/15/20 05/15/20 History Allergies Allergy/AdvReac Type Severity Reaction Status Date / Time prochlorperazine edisylate Allergy Unknown Verified 05/15/20 18:26 [From Compazine] prochlorperazine maleate Allergy Unknown Verified 05/15/20 18:26 [From Compazine] Physical Exam Vitals: Vital Signs Temp Pulse Pulse Resp BP BP Pulse Ox 05/16/20 04:10 97.8 F 91 112/70 99 05/15/20 22:54 98.0 F 90 117/80 98 05/15/20 18:53 101 H 16 124/81 99 05/15/20 17:18 99.0 F 99 18 144/90 100 Intake and Output 05/15/20 05/16/20 05/16/20 22:59 06:59 14:59 Intake Total 350 Balance 350 Intake: Oral 350 Other: Voiding Method Toilet Weight 77.111 kg - Constitutional General appearance: no acute distress - Respiratory Respiratory: bilateral: CTA - Cardiovascular Rhythm: regular Heart sounds: normal: S1, S2 Abnormal Heart Sounds: systolic murmur Results 05/15/20 17:37 05/15/20 17:37 Cardiac Enzymes 05/15/20 05/15/20 05/15/20 Range/Units 17:37 17:37 20:43 AST 24 (14-36) U/L Troponin I <0.012 <0.012 (0.000-0.034) ng/mL 05/15/20 Range/Units 23:58 AST (14-36) U/L Troponin I <0.012 (0.000-0.034) ng/mL Coagulation 05/15/20 Range/Units 17:37 PT 9.9 (9.0-12.0) sec APTT 24.5 (22.0-30.0) sec Lipids 05/15/20 Range/Units 17:37 Triglycerides 131 (<150) mg/dL Cholesterol 160 (<200) mg/dL HDL Cholesterol 93 H (40-60) mg/dL CBC 05/15/20 Range/Units 17:37 WBC 10.1 (3.8-10.6) k/uL RBC 4.36 (3.80-5.40) m/uL Hgb 13.4 (11.4-16.0) gm/dL Hct 40.6 (34.0-46.0) % Plt Count 244 (150-450) k/uL Comprehensive Metabolic Panel 05/15/20 Range/Units 17:37 Sodium 138 (137-145) mmol/L Potassium 3.9 (3.5-5.1) mmol/L Chloride 107 (98-107) mmol/L Carbon Dioxide 23 (22-30) mmol/L BUN 9 (7-17) mg/dL Creatinine 0.66 (0.52-1.04) mg/dL Glucose 102 H (74-99) mg/dL Calcium 9.7 (8.4-10.2) mg/dL AST 24 (14-36) U/L ALT 18 (4-34) U/L Alkaline Phosphatase 64 (38-126) U/L Total Protein 7.6 (6.3-8.2) g/dL Albumin 4.7 (3.5-5.0) g/dL Current Medications Generic Name Dose Route Start Last Admin Trade Name Freq PRN Reason Stop Dose Admin Acetaminophen 650 mg 05/16/20 12:00 Acetaminophen Tab 325 Mg Tab PO Q4HR PRN Fever and/ or Pain Hydrocodone Bitart/Acetaminophen 1 each 05/16/20 06:26 Hydrocodone/Apap 5-325mg 1 Each Tab PO Q6HR PRN Pain Aspirin 81 mg 05/16/20 09:00 Aspirin 81 Mg PO DAILY [facility] Sodium Chloride 1,000 mls @ 50 mls/hr 05/15/20 17:37 05/15/20 20:51 Saline 0.9% IV 05/16/20 13:36 Not Given .Q20H STA Nitroglycerin 0.4 mg 05/15/20 20:04 Nitroglycerin Sl Tabs 0.4 Mg Tab SUBLINGUAL Q5M PRN Chest Pain Nitroglycerin 1 inch 05/16/20 00:00 05/16/20 06:40 Nitroglycerin Oint 1 Inch/Gm Packet TOPICAL 1 inch Q6HR PATRICIA Administration Pantoprazole Sodium 40 mg 05/16/20 07:30 05/16/20 06:39 Pantoprazole 40 Mg Tablet PO 40 mg DAILY@0730 [facility] Administration Sodium Chloride 10 ml 05/15/20 21:00 05/16/20 00:25 Sodium Chloride 0.9% Flush 10 Ml Syringe IV 10 ml BID PATRICIA Administration Intake and Output 05/15/20 05/16/20 05/16/20 22:59 06:59 14:59 Intake Total 350 Balance 350 Intake: Oral 350 Other: Voiding Method Toilet Weight 77.111 kg 05/15/20 17:37 05/15/20 17:37 Assessment and Plan Assessment: Assessment #1 atypical chest discomfort #2 history of smoking #3 family history of CAD Plan #1 acute coronary event was ruled out #2 I will obtain a stress test to rule out severe CAD #3 obtain an echocardiogram was Doppler #4 follow-up with the patient Thank you for allowing us participate in her care
[2020-05-16] MEDS ORDERED: ASPIRIN 325 MG TAB PO SCH (09:00)
[2020-05-16] MEDS: ASPIRIN 81 MG PO SCH (09:05)
--- NOTE | 2020-05-16 13:33 | ECHOF ---
Referral Reason:CP MEASUREMENTS -------- HEIGHT: 170.2 cm WEIGHT: 77.1 kg BP: RVIDd: 2.3 cm (< 3.3) IVSd: 0.9 cm (0.6 - 1.1) LVIDd: 4.5 cm (3.9 - 5.3) LVPWd: 0.9 cm (0.6 - 1.1) IVSs: 1.2 cm LVIDs: 3.3 cm LVPWs: 1.3 cm LA Diam: 3.4 cm (2.7 - 3.8) LAESV Index (A-L): 21.44 ml/m Ao Diam: 2.1 cm (2.0 - 3.7) AV Cusp: 1.5 cm (1.5 - 2.6) MV EXCURSION: 17.180 mm (> 18.000) MV EF SLOPE: 76 mm/s (70 - 150) EPSS: 0.3 cm MV E Masoud: 0.49 m/s MV DecT: 142 ms MV A Masoud: 0.51 m/s MV E/A Ratio: 0.95 RAP: 5.00 mmHg RVSP: 20.77 mmHg FINDINGS -------- Sinus rhythm. This was a technically good study. LV size, wall thickness and systolic function are normal, with an EF greater than 55%. The left belinda tricular size is normal. The right ventricle is normal in size. The left atrial size is normal. Normal LA size by volume 22+/-6 ml/m2. The right atrial size is normal. The aortic valve is trileaflet, and appears structurally normal. No aortic stenosis or regurgitation. There is trace mitral regurgitation. Mild tricuspid regurgitation present. Right ventricular systolic pressure is normal at < 35 mmHg. There is no pulmonic regurgitation present. There is no pericardial effusion. CONCLUSIONS -------- 1. LV size, wall thickness and systolic function are normal, with an EF greater than 55%. 2. The left ventricular size is normal. 3. The right ventricle is normal in size. 4. The left atrial size is normal. 5. Normal LA size by volume 22+/-6 ml/m2. 6. The right atrial size is normal. 7. There is trace mitral regurgitation. 8. Mild tricuspid regurgitation present. 9. There is no pericardial effusion. SEWING MACHINE OPERATOR FLOORPERSON: Barb Gomez RDCS
--- NOTE | 2020-05-16 15:16 | ECHOS ---
STRESS ECHOCARDIOGRAM LUMASON: Vial INDICATIONS: Chest pain. MEDICATIONS: BASELINE HEART RATE: 111 BASELINE BLOOD PRESSURE: 113/56 MAXIMUM HEART RATE: 184 MAXIMUM BLOOD PRESSURE: 170/82 85% MPHR: 153 100% MPHR: 180 METS: 10.3 MAXIMUM STAGE REACHED: 3 TOTAL EXERCISE TIME: 9:00 CLINICAL INFORMATION: STRESS DATA: Heart rate is 111, pressure 113/56 mmHg. Baseline EKG showed sinus mechanism. The patient exercised on the treadmill according to Jono protocol for a total of 9 minutes and achieved 10.3 METS. Max heart rate was 169, which is about 100% of maximum predicted heart rate. Maximum blood pressure was 170/82 mmHg. Clinically the patient did not have any symptoms of chest pain or chest discomfort. The EKG did not show any significant ST or T-wave abnormalities concerning for ischemia. On echocardiogram from parasternal long axis view, parasternal short axis, apical 4 chamber and apical 2 chambers were obtained as the baseline images, at the peak of the heart rate as well as on recovery and the echo showed good augmentation in the left ventricular systolic function without any evidence of wall motion abnormalities concerning for ischemia. CONCLUSION: 1. Good exercise tolerance. 2. Normal EKG in response to exercise. 3. Normal echocardiogram in response to exercise. MMODL / IJN: [id number] /
[2020-05-16] MEDS: SUCRALFATE 1 GM TAB PO SCH ×2 (16:24→16:30)
[2020-05-16] MEDS: ACETAMINOPHEN TAB 325 MG TAB PO PRN (19:53)
--- NOTE | 2020-05-16 22:43 | P.HPIM ---
History of Present Illness H&P Date: 05/16/20 Chief Complaint: chest pain Kelly Fox is a 40 yo F with PMH of GERD who presented to the ED complaining of chest pain. She reports that over the past few days but worst the day of admission she has been experiencing sharp and burning substernal pain. Pain does not radiate and no associated palpitations, shortness of breath, diaphoresis. She has no CAD and is a nonsmoker. She does report being diagnosed with gastritis in the past after EGD about a year ago. She denies recent NSAID or steroid use, denies caffeine. Review of Systems All systems: negative Constitutional: Denies chills, Denies fever Eyes: denies blurred vision, denies pain Ears, nose, mouth and throat: Denies headache, Denies sore throat Cardiovascular: Reports chest pain, Denies shortness of breath Respiratory: Denies cough Gastrointestinal: Reports dyspepsia, Reports heartburn, Denies abdominal pain, D enies diarrhea, Denies nausea, Denies vomiting Genitourinary: Denies dysuria, Denies hematuria Musculoskeletal: Denies myalgias Integumentary: Denies pruritus, Denies rash Neurological: Denies numbness, Denies weakness Psychiatric: Denies anxiety, Denies depression Endocrine: Denies fatigue, Denies weight change Past Medical History Past Medical History: GERD/Reflux Additional Past Medical History / Comment(s): pvc's, History of Any Multi-Drug Resistant Organisms: None Reported Past Surgical History: Cholecystectomy, Hernia Repair Additional Past Surgical History / Comment(s): umbilical hernia repair as infant Past Anesthesia/Blood Transfusion Reactions: Motion Sickness Additional Past Anesthesia/Blood Transfusion Reaction / Comment(s): clausterphobia. Past Psychological History: Anxiety Additional Psychological History / Comment(s): pt is independant. works as massage therpist. 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 Smoking Status: Never smoker Past Alcohol Use History: Occasional Additional Past Alcohol Use History / Comment(s): started smokiong at age 13 quit at age 35 was smoking 1.5 ppd Past Drug Use History: None Reported - Past Family History Mother Family Medical History: Myocardial Infarction ([place]) Additional Family Medical History / Comment(s): had first mi at ge 50 or 51 and 2nd mi at 55 or 56. smoker, brain anuerysm Father History Unknown: Yes Medications and Allergies Home Medications Medication Instructions Recorded Confirmed Type Aspirin [Adult Low Dose Aspirin EC] 81 mg PO DAILY 05/15/20 05/15/20 History Pantoprazole [Protonix] 40 mg PO DAILY #30 tablet. 05/16/20 Rx Allergies Allergy/AdvReac Type Severity Reaction Status Date / Time prochlorperazine edisylate Allergy Unknown Verified 05/15/20 18:26 [From Compazine] prochlorperazine maleate Allergy Unknown Verified 05/15/20 18:26 [From Compazine] Physical Exam Vitals: Vital Signs Temp Pulse Resp BP BP Pulse Ox 05/16/20 20:28 98.2 F 77 16 122/79 99 05/16/20 20:04 99 05/16/20 15:00 80 16 123/82 99 05/16/20 09:00 97 F L 80 16 115/78 99 05/16/20 04:10 97.8 F 91 112/70 99 05/15/20 22:54 98.0 F 90 117/80 98 Intake and Output 05/16/20 05/16/20 05/16/20 06:59 14:59 22:59 Intake Total 350 540 Balance 350 540 Intake: Oral 350 540 Other: Voiding Method Toilet Toilet # Voids 1 2 1 Weight 77.11 kg General: well nourished, well developed, NAD. Vitals reviewed Eyes: PERRL, EOMI, conjunctiva normal HENT: normocephalic, mucus membranes moist Neck: supple, no JVD Lungs: normal respiratory effort, no wheezes or rales CV: Regular rate and rhythm, no murmur. Peripheral pulses 2+ Abdomen: soft, nondistended, no organomegaly Lymph: no cervical or axillary LAD Skin: warm and dry. Neuro: A&Ox3, normal mood and affect Results CBC & Chem 7: 05/15/20 17:37 05/15/20 17:37 Labs: Abnormal Lab Results - Last 24 Hours (Table) 05/15/20 Range/Units 17:37 HDL Cholesterol 93 H (40-60) mg/dL Thrombosis Risk Factor Assmnt - Choose All That Apply Each Factor Represents 1 point: Obesity (BMI >25) Thrombosis Risk Factor Assessment Total Risk Factor Score: 1 Thrombosis Risk Factor Assessment Level: Low Risk Assessment and Plan (1) GERD (gastroesophageal reflux disease) Current Visit: Yes Status: Acute Code(s): K21.9 - GASTRO-ESOPHAGEAL REFLUX DISEASE WITHOUT ESOPHAGITIS SNOMED Code(s): 827391756 (2) Chest pain Current Visit: Yes Status: Acute Code(s): R07.9 - CHEST PAIN, UNSPECIFIED SNOMED Code(s): 45266417 Plan: 1. Chest pain. ACS ruled out. Cardiology consult. Stress test pending. Start protonix and carafate 2. GERD. Check H pylori antigen
[2020-05-17] MEDS: NITROGLYCERIN OINT 1 INCH/GM PACKET TOPICAL SCH ×2 (03:20→06:13)
[2020-05-17] MEDS: ACETAMINOPHEN TAB 325 MG TAB PO PRN (03:21)
[2020-05-17 04:48] VITALS: PULSE 82
[2020-05-17] MEDS: SUCRALFATE 1 GM TAB PO SCH (06:28)
[2020-05-17] MEDS: PANTOPRAZOLE 40 MG TABLET PO SCH (06:28)
[2020-05-17 08:48] VITALS: BP 132/82; TEMP 98.3
[2020-05-17] MEDS: ASPIRIN 81 MG PO SCH (09:08)
--- NOTE | 2020-05-17 10:05 | P.PN ---
Subjective Progress Note Date: 05/17/20 Is a pleasant 40-year-old female with no prior documented significant history who presented to the hospital with symptoms of atypical chest discomfort. She underwent a stress echocardiographic study yesterday which was negative for any reversible ischemia. Her echocardiogram with Doppler study showed an ejection fraction of 55%. Patient was kept overnight because she was apparently complaining of some chest discomfort later in the afternoon yesterday. Her blood pressure this morning 132/80 with a heart rate of 70, 99% on room air. Objective - Vital Signs Vital signs: Vital Signs Temp 98.3 F 05/17/20 08:43 Pulse 82 05/17/20 08:43 Resp 16 05/17/20 08:43 BP 132/82 05/17/20 08:43 Pulse Ox 99 05/17/20 08:43 Intake & Output 05/16/20 05/17/20 05/17/20 18:59 06:59 18:59 Intake Total 350 540 Balance 350 540 Weight 77.11 kg Intake: Oral 350 540 Other: Voiding Method Toilet Toilet Toilet # Voids 2 1 1 - Exam PHYSICAL EXAMINATION: GENERAL: 40-year-old female in no acute distress at the time of my examination HEENT: Head is atraumatic, normocephalic. Pupils equal, round. Sclera anicteric. Conjunctiva are clear. Mucous membranes of the mouth are moist. Neck is supple. There is no elevated jugular venous pressure. No carotid bruit is heard. HEART EXAMINATION: Heart S1, S2 normal. No murmur or gallop heard. CHEST EXAMINATION: Lungs are clear to auscultation and precussion. No chest wall tenderness is noted on palpation or with deep breathing. ABDOMEN: Soft, nontender. Bowel sounds are heard. No organomegaly noted. EXTREMITIES: 2+ peripheral pulses with no evidence of peripheral edema and no calf tenderness noted. NEUROLOGIC patient is awake, alert and oriented 3 . . - Labs CBC & Chem 7: 05/15/20 17:37 05/15/20 17:37 Assessment and Plan Plan: Assessment and plan #1 atypical chest pain, status post stress echocardiographic study which was negative for any reversible ischemia #2 GERD Plan From cardiology's perspective, patient may be able to be discharged home today. We'll make her a follow-up appointment to see Dr. Pantoja in the office post discharge. DNP note has been reviewed, I agree with a documented findings and plan of care. Patient was seen and examined.
--- NOTE | 2020-05-29 08:32 | P.DS ---
Providers Date of admission: 05/15/20 20:04 Expected date of discharge: 05/17/20 Attending physician: Jai Delcid MD Consults: 05/15/20 20:04 Consult Physician Urgent Consulting Provider: Keira Berry Consult Reason/Comments: cp, t wave inversion Do you want consulting provider notified?: Yes Primary care physician: Negrita Mroataya - Discharge Diagnosis(es) (1) GERD (gastroesophageal reflux disease) Status: Acute (2) Chest pain Status: Acute Hospital Course: Kelly Fox is a 40 yo F with PMH of GERD who presented to the ED complaining of chest pain. She reports that over the past few days but worst the day of admission she has been experiencing sharp and burning substernal pain. Pain does not radiate and no associated palpitations, shortness of breath, diaphoresis. She has no CAD and is a nonsmoker. She does report being diagnosed with gastritis in the past after EGD about a year ago. She denies recent NSAID or steroid use, denies caffeine. Patient was admitted to observation seen by cardiology. She underwent exercise stress test which did not reveal any i schemia. Her discomfort was treated with Protonix and Carafate and did resolve. She is discharged in stable condition and recommended to follow up with her PCP and continue antiacid medications. Discharge exam: Gen.: Well-developed, well-nourished female in no acute distress CV: Regular rate and rhythm, no murmur Lungs: Normal effort clear throughout Neuro: Alert and oriented 3 no focal deficits Plan - Discharge Summary Discharge Rx Participant: No New Discharge Prescriptions: New Pantoprazole [Protonix] 40 mg PO DAILY #30 tablet. Sucralfate [Carafate] 1 gm PO AC-TID #90 tab Continue Aspirin [Adult Low Dose Aspirin EC] 81 mg PO DAILY Discontinued Omeprazole Magnesium [PriLOSEC OTC] 20 mg PO DAILY Discharge Medication List Aspirin [Adult Low Dose Aspirin EC] 81 mg PO DAILY 05/15/20 [History] Pantoprazole [Protonix] 40 mg PO DAILY #30 tablet. 05/16/20 [Rx] Sucralfate [Carafate] 1 gm PO AC-TID #90 tab 05/17/20 [Rx] Follow up Appointment(s)/Referral(s): Khris Brambila MD [STAFF PHYSICIAN] - 2 Weeks (doctor's office to call patient to schedule follow-up appointment) Negrita Morataya MD [Primary Care Provider] - 05/22/20 11:30 am Patient Instructions/Handouts: Chest Pain (DC), Gastroesophageal Reflux Disease (DC) Discharge Disposition: HOME SELF-CARE
== END 2020-05-17 11:38 | disposition home or self-care (01) ==
LOC: EC 17:15 → 3NCARDOBS 20:04 → OBSVTOIN 05-17 09:09 → INTOOBSV 05-17 09:09 → UNDODISIN 05-17 11:38
PROVIDERS: ADMIT Family Medicine; ATTEND Family Medicine
DX: Z79.899 Other long term (current) drug therapy (principal); K21.9 Gastro-esophageal reflux disease without esophagitis; I49.3 Ventricular premature depolarization; R01.1 Cardiac murmur, unspecified; F40.240 Claustrophobia; F41.9 Anxiety disorder, unspecified; Z87.891 Personal history of nicotine dependence; Z90.49 Acquired absence of other specified parts of digestive tract; Z98.890 Other specified postprocedural states; Z82.49 Family history of ischemic heart disease and other diseases of the circulatory system; R07.89 Other chest pain; Z79.82 Long term (current) use of aspirin; Z88.8 Allergy status to other drugs, medicaments and biological substances
CPT/HCPCS: 93005 ×2; 99285; 36415; 93306; 93351; 80061; 80053; 83735; 84484; 85025; 85610; 85730; 71046; G0378 ×3

== ENCOUNTER → 2020-09-25 | Outpatient (CLI) | payer OTHER ==
[2020-09-25 12:11] LABS: Ionized Calcium 5.1 mg/dL (4.5-5.3)
[2020-09-25 17:40] LABS: HCT 38.8 % (37.2-46.3); HGB 12.4 g/dL (12.0-15.0); MCH 30.4 pg (27.0-32.0); MCV 95.1 fL (80.0-97.0); Mean Platelet Volume 13.7 fL (9.5-12.2); Platelet Count 229 X 10*3/uL (140-440); RBC 4.08 X 10*6/uL (4.10-5.20); RDW 13.2 % (11.5-14.5); WBC 8.78 X 10*3/uL (4.50-10.00)
[2020-09-25 20:33] LABS: African American GFR (CKD) 92.7 (60.0-200.0); Albumin 4.9 g/dL (3.80-4.90); Albumin/Globulin Ratio 2.13 (1.60-3.17); Anion Gap 9.4 mmol/L (4.00-12.00); BUN/Creat Ratio 11.11 Ratio (12.00-20.00); Calcium 9.6 mg/dL (8.7-10.3); Carbon Dioxide 25.6 mmol/L (21.6-31.8); Globulin 2.3 g/dL (1.6-3.3); Potassium 3.9 mmol/L (3.5-5.5); Total Bilirubin 0.6 mg/dL (0.3-1.2); Total Protein 7.2 g/dL (6.2-8.2)
== END | disposition home or self-care (01) ==
LOC: LABWHC1 11:17
PROVIDERS: ATTEND Family Medicine
DX: R07.9 Chest pain, unspecified (principal)
CPT/HCPCS: 36415; 80053; 82306; 82330; 83970; 85027

== ENCOUNTER → 2020-12-02 | Outpatient (CLI) | payer OTHER ==
--- NOTE | 2020-12-02 14:42 | MM ---
Reason for exam: screening (asymptomatic). Baseline mammogram. History: Family history of breast cancer in paternal aunt at age 52. Physical Findings: Nurse did not find any significant physical abnormalities on exam. MG Screening Mammo w CAD Bilateral CC and MLO view(s) were taken. XCCM view(s) were taken of the right breast. The breast tissue is heterogeneously dense. This may lower the sensitivity of mammography. Right 5-6mm nodule at 2 o'clock 7.6cm from nipple. Left 6mm nodule upper inner quadrant 10.7cm from nipple. These results were verbally communicated with the patient and result sheet given to the patient on 12/02/20. ASSESSMENT: Incomplete: need additional imaging evaluation, BI-RAD 0 RECOMMENDATION: Ultrasound of both breasts.
--- NOTE | 2020-12-02 14:44 | USB ---
Reason for exam: additional evaluation requested from abnormal screening. History: Family history of breast cancer in paternal aunt at age 52. Physical Findings: Breast exam preformed at baseline screening. US Breast Workup Limited ZURI Right limited breast ultrasound including focal area of concern, retroareolar and axilla demonstrates a 0.5 x 0.3 x 0.5cm mixed lesion at 2 o'clock and a 0.4 x 0.3 x 0.3cm mixed lesion at 3 o'clock. Left limited breast ultrasound including focal area of concern, retroareolar and axilla demonstrates a 0.5 x 0.3 x 0.6cm hypoechoic lesion at 10 o'clock. These results were verbally communicated with the patient and result sheet given to the patient on 12/02/20. ASSESSMENT: Probably benign, BI-RAD 3 RECOMMENDATION: Follow-up diagnostic mammogram and ultrasound of both breasts in 6 months.
[2020-12-02 15:36] LABS: HCT 40.8 % (34.0-46.0); MCH 32.4 pg (25.0-35.0); MCHC 34.4 g/dL (31.0-37.0); MCV 94.3 fL (80.0-100.0); Mean Platelet Volume 10.6; Platelet Count 278 k/uL (150-450); RBC 4.33 m/uL (3.80-5.40); RDW 12.6 % (11.5-15.5); WBC 8.2 k/uL (3.8-10.6)
[2020-12-02 15:51] LABS: ALT 22 U/L (4-34); AST 32 U/L (14-36); African American GFR (CKD) >90 (>60 ml/min/1.73 sqM); Albumin 4.9 g/dL (3.5-5.0); Alkaline Phosphatase 64 U/L (38-126); Anion Gap 10 mmol/L; Blood Urea Nitrogen 13 mg/dL (7-17); Calcium 10.1 mg/dL (8.4-10.2); Carbon Dioxide 26 mmol/L (22-30); Chloride 104 mmol/L (98-107); Glucose 83 mg/dL (74-99); Non-African American GFR(CKD) >90 (>60 ml/min/1.73 sqM); Potassium 4.1 mmol/L (3.5-5.1); Sodium 140 mmol/L (137-145); Total Bilirubin 0.5 mg/dL (0.2-1.3); Total Protein 7.9 g/dL (6.3-8.2)
[2020-12-02 16:06] LABS: T4, Free (Free Thyroxine) 1.08 ng/dL (0.78-2.19)
[2020-12-02 21:31] LABS: Hemoglobin A1C 4.8 % (4.0-6.0)
== END | disposition home or self-care (01) ==
LOC: RADMAMWWP 13:17
PROVIDERS: ATTEND Family Medicine
DX: Z12.31 Encounter for screening mammogram for malignant neoplasm of breast (principal); R92.8 Other abnormal and inconclusive findings on diagnostic imaging of breast; Z80.3 Family history of malignant neoplasm of breast; Z00.00 Encounter for general adult medical examination without abnormal findings; E66.3 Overweight; R07.9 Chest pain, unspecified; Z20.822 Contact with and (suspected) exposure to COVID-19; R73.01 Impaired fasting glucose
CPT/HCPCS: 77067; 80053; 83036; 84439; 84443; 85027; 86769

== ENCOUNTER → 2021-08-13 | Outpatient (CLI) | payer OTHER ==
--- NOTE | 2021-08-14 09:31 | MM ---
Reason for exam: additional evaluation requested from prior study. Last mammogram was performed 8 months ago. History: Family history of breast cancer in paternal aunt at age 52. Physical Findings: Nurse did not find any significant physical abnormalities on exam. MG Diagnostic Mammo w CAD ZURI Bilateral CC and MLO view(s) were taken. LM, spot compression CC, and spot compression MLO view(s) were taken of the left breast. Prior study comparison: December 02, 2020, bilateral MG screening mammo w CAD. There are scattered fibroglandular densities. Stable nodularity for 8 months left breast at 10 o'clock. New focal asymmetries left upper outer quadrant and 3-4 o'clock. The superior asymmetric dnesity does not persist on the true lateral view. These results were verbally communicated with the patient and result sheet given to the patient on 08/13/21. ASSESSMENT: Incomplete: need additional imaging evaluation, BI-RAD 0 RECOMMENDATION: Ultrasound of the left breast.
--- NOTE | 2021-08-14 09:33 | USB ---
Reason for exam: additional evaluation requested from abnormal screening. History: Family history of breast cancer in paternal aunt at age 52. US Breast Limited LT Left limited breast ultrasound including focal area of concern, retroareolar and axilla demonstrates a 0.4 x 0.3 x 0.4cm likely cyst with debris at 10 o'clock, likely mammographic correlate and a 0.6 x 0.4 x 0.5cm benign lesion at 3 o'clock, likely mammographic correlate. Scanned 10 o'clock and 1-4 o'clock. These results were verbally communicated with the patient and result sheet given to the patient on 08/13/21. ASSESSMENT: Probably benign, BI-RAD 3 RECOMMENDATION: Follow-up diagnostic mammogram of the left breast in 6 months.
== END | disposition home or self-care (01) ==
LOC: RADMAMWWP 14:51
PROVIDERS: ATTEND Family Medicine
DX: R92.8 Other abnormal and inconclusive findings on diagnostic imaging of breast (principal)
CPT/HCPCS: 77066

== ENCOUNTER → 2021-09-10 | Outpatient (CLI) | payer OTHER ==
--- NOTE | 2021-09-11 08:13 | EST ---
EXERCISE STRESS AGE: 41 SEX: F HT: 5'7" WT: 170 PROTOCOL: Jono STAGE: 3 DURATION OF EXERCISE: 8:00 HEART RATE REST: 75 BLOOD PRESSURE REST: 132/96 MAXIMUM HEART RATE ACHIEVED: 173 MAXIMUM BLOOD PRESSURE: 180/95 85% MPHR: 152 100% MPHR: 179 METS: 10.3 INDICATIONS: Chest pain. CLINICAL INFORMATION: Baseline EKG shows sinus rhythm, normal axis, normal intervals, with nonspecific ST-T wave changes. Patient exercised on Jono protocol for a total of 8 minutes, achieving 9 METS, 85% of predicted maximal heart rate, without chest pain. At peak exercise there was [address]-segment depression noted in the inferolateral leads. CONCLUSIONS: 1. Good exercise tolerance. 2. Abnormal stress test by EKG criteria. MARGARITA / KARINAN: [id number] /
== END | disposition home or self-care (01) ==
LOC: RADNMMAIN 10:31
PROVIDERS: ATTEND Family Medicine
DX: R07.9 Chest pain, unspecified (principal)
CPT/HCPCS: 93017

== ENCOUNTER 2021-09-13 06:15 | Emergency (ER) | payer OTHER ==
[2021-09-13] MEDS ORDERED: SODIUM CHLORIDE 0.9% 500 ML 500 ML IV STA (06:30)
--- NOTE | 2021-09-13 06:32 | ED ---
General Adult HPI - General Chief complaint: Chest Pain Stated complaint: Arrhythmia,Chest Pain Time Seen by Provider: 09/13/21 06:20 Source: patient, RN notes reviewed Mode of arrival: wheelchair - History of Present Illness Initial comments: 41-year-old female with a past medical history of GERD, anxiety, PVCs presents to the emergency room for a chief complaint of racing heart. Patient states that she woke up this morning and felt like her heart was racing. States she be came very flushed. She denies any chest pain associated with these symptoms but states it concerned her so she took aspirin and came to the ER. Patient states for the past few months on and off she has been having a pinching pain in her chest that sometimes radiates to the left arm. Patient states she has seen cardiology and they put her on a monitor and she also had an outpatient stress test a few days ago. Patient has not yet received the results but looked online and saw that it was abnormal. Patient denies any history of diabetes, high cholesterol, hypertension but does admit to a remote smoking history.Patient has no other complaints at this time including shortness of breath, abdominal pain, nausea or vomiting, headache, or visual changes. - Related Data Home Medications Medication Instructions Recorded Confirmed Aspirin [Adult Low Dose Aspirin EC] 81 mg PO DAILY 05/15/20 09/13/21 Famotidine 20 mg PO BID 09/13/21 09/13/21 Omeprazole 20 mg PO DAILY 09/13/21 09/13/21 Sertraline [Zoloft] 25 mg PO HS 09/13/21 09/13/21 busPIRone HCl [Buspar] 5 mg PO TID PRN 09/13/21 09/13/21 Allergies Allergy/AdvReac Type Severity Reaction Status Date / Time Penicillins Allergy Rash/Hives Verified 09/13/21 07:45 prochlorperazine edisylate Allergy Unknown Verified 09/13/21 07:45 [From Compazine] prochlorperazine maleate Allergy Unknown Verified 09/13/21 07:45 [From Compazine] Review of Systems ROS Statement: Those systems with pertinent positive or pertinent negative responses have been documented in the HPI. ROS Other: All systems not noted in ROS Statement are negative. Past Medical History Past Medical History: GERD/Reflux Additional Past Medical History / Comment(s): pvc's, anxiety, chronic lower bck pain History of Any Multi-Drug Resistant Organisms: None Reported Past Surgical History: Cholecystectomy, Hernia Repair Additional Past Surgical History / Comment(s): umbilical hernia repair as infant Past Anesthesia/Blood Transfusion Reactions: Motion Sickness Additional Past Anesthesia/Blood Transfusion Reaction / Comment(s): clausterphobia. pt stated has never recieved blood transfusions. Past Psychological History: Anxiety Smoking Status: Never smoker Past Alcohol Use History: Daily Past Drug Use History: None Reported - Past Family History Mother Family Medical History: Myocardial Infarction ([place]) Additional Family Medical History / Comment(s): had first mi at ge 50 or 51 and 2nd mi at 55 or 56. smoker, brain anuerysm Father History Unknown: Yes General Exam General appearance: alert, in no apparent distress Head exam: Present: atraumatic Eye exam: Present: normal appearance, PERRL, EOMI. Absent: scleral icterus, conjunctival injection ENT exam: Present: normal exam, mucous membranes moist Neck exam: Present: normal inspection, full ROM. Absent: tenderness Respiratory exam: Present: normal lung sounds bilaterally. Absent: respiratory distress, wheezes Cardiovascular Exam: Present: regular rate, normal rhythm, normal heart sounds GI/Abdominal exam: Present: soft, normal bowel sounds. Absent: distended, tenderness Course Vital Signs 09/13/21 09/13/21 06:24 07:36 Temperature 98.7 F 98.1 F Pulse Rate 110 H 81 Respiratory 19 18 Rate Blood Pressure 154/92 128/82 O2 Sat by Pulse 100 100 Oximetry EKG Findings - EKG Comments: EKG Findings:: Sinus tachycardia, ventricular rate 104, MO interval 134, QTc 476 Medical Decision Making - Medical Decision Making Vitals are stable. Patient initially presented mildly tachycardic however suspect this is likely due to anxiety. It did improve to 70s throughout her stay. EKG shows a normal sinus rhythm. CBC CMP is unremarkable. Troponin is negative. D-dimer is 0.18. Chest x-ray shows no acute cardiopulmonary change from prior. Patient had a stress test 3 days ago. She actually had good exercise tolerance. At peak exercise there was [address] segment depression noted in the inferolateral leads. Given these findings I discussed this case with educational interpreter Dr. Berry. Feels that patient can follow up outpatient. Patient will follow up with cardiology for her Holter monitor as well as stress test. She will also follow up with primary care. She will return here for any worsening symptoms. - Lab Data Result diagrams: 09/13/21 06:38 09/13/21 06:38 Lab Results 09/13/21 09/13/21 09/13/21 Range/Units 06:38 06:38 06:38 WBC 8.1 (3.8-10.6) k/uL RBC 4.27 (3.80-5.40) m/uL Hgb 13.7 (11.4-16.0) gm/dL Hct 41.4 (34.0-46.0) % MCV 96.9 (80.0-100.0) fL MCH 32.0 (25.0-35.0) pg MCHC 33.0 (31.0-37.0) g/dL RDW 11.8 (11.5-15.5) % Plt Count 280 (150-450) k/uL MPV 8.9 Neutrophils % 65 % Lymphocytes % 25 % Monocytes % 5 % Eosinophils % 3 % Basophils % 1 % Neutrophils # 5.3 (1.3-7.7) k/uL Lymphocytes # 2.1 (1.0-4.8) k/uL Monocytes # 0.4 (0-1.0) k/uL Eosinophils # 0.3 (0-0.7) k/uL Basophils # 0.1 (0-0.2) k/uL PT 10.9 (9.0-12.0) sec INR 1.0 (<1.2) APTT 25.0 (22.0-30.0) sec D-Dimer 0.18 (<0.60) mg/L FEU Sodium 138 (137-145) mmol/L Potassium 3.6 (3.5-5.1) mmol/L Chloride 106 (98-107) mmol/L Carbon Dioxide 23 (22-30) mmol/L Anion Gap 9 mmol/L BUN 8 (7-17) mg/dL Creatinine 0.73 (0.52-1.04) mg/dL Est GFR (CKD-EPI)AfAm >90 (>60 ml/min/1.73 sqM) Est GFR (CKD-EPI)NonAf >90 (>60 ml/min/1.73 sqM) Glucose 149 H (74-99) mg/dL Calcium 9.4 (8.4-10.2) mg/dL Magnesium 2.0 (1.6-2.3) mg/dL Total Bilirubin 0.7 (0.2-1.3) mg/dL AST 30 (14-36) U/L ALT 22 (4-34) U/L Alkaline Phosphatase 40 (38-126) U/L Troponin I (0.000-0.034) ng/mL NT-Pro-B Natriuret Pep pg/mL Total Protein 7.4 (6.3-8.2) g/dL Albumin 4.4 (3.5-5.0) g/dL Lipase 101 (23-300) U/L 09/13/21 09/13/21 Range/Units 06:38 06:38 WBC (3.8-10.6) k/uL RBC (3.80-5.40) m/uL Hgb (11.4-16.0) gm/dL Hct (34.0-46.0) % MCV (80.0-100.0) fL MCH (25.0-35.0) pg MCHC (31.0-37.0) g/dL RDW (11.5-15.5) % Plt Count (150-450) k/uL MPV Neutrophils % % Lymphocytes % % Monocytes % % Eosinophils % % Basophils % % Neutrophils # (1.3-7.7) k/uL Lymphocytes # (1.0-4.8) k/uL Monocytes # (0-1.0) k/uL Eosinophils # (0-0.7) k/uL Basophils # (0-0.2) k/uL PT (9.0-12.0) sec INR (<1.2) APTT (22.0-30.0) sec D-Dimer (<0.60) mg/L FEU Sodium (137-145) mmol/L Potassium (3.5-5.1) mmol/L Chloride (98-107) mmol/L Carbon Dioxide (22-30) mmol/L Anion Gap mmol/L BUN (7-17) mg/dL Creatinine (0.52-1.04) mg/dL Est GFR (CKD-EPI)AfAm (>60 ml/min/1.73 sqM) Est GFR (CKD-EPI)NonAf (>60 ml/min/1.73 sqM) Glucose (74-99) mg/dL Calcium (8.4-10.2) mg/dL Magnesium (1.6-2.3) mg/dL Total Bilirubin (0.2-1.3) mg/dL AST (14-36) U/L ALT (4-34) U/L Alkaline Phosphatase (38-126) U/L Troponin I <0.012 (0.000-0.034) ng/mL NT-Pro-B Natriuret Pep 163 pg/mL Total Protein (6.3-8.2) g/dL Albumin (3.5-5.0) g/dL Lipase (23-300) U/L Disposition Clinical Impression: Palpitations Disposition: HOME SELF-CARE Condition: Good Instructions (If sedation given, give patient instructions): Heart Palpitations (ED) Additional Instructions: Please follow up with both cardiology and primary care. If you develop any worsening symptoms return to the emergency room. Is patient prescribed a controlled substance at d/c from ED?: No Referrals: Negrita Morataya MD [Primary Care Provider] - 1-2 days [facility] [Provider Group] - 1-2 days Time of Disposition: 08:32
[2021-09-13 06:42] LABS: HCT 41.4 % (34.0-46.0); HGB 13.7 gm/dL (11.4-16.0); MCV 96.9 fL (80.0-100.0); RBC 4.27 m/uL (3.80-5.40); WBC 8.1 k/uL (3.8-10.6)
[2021-09-13 06:43] LABS: Basophils # (A) 0.1 k/uL (0-0.2); Basophils % (A) 1 %; Eosinophils # (A) 0.3 k/uL (0-0.7); Eosinophils % (A) 3 %; Lymphocytes # (A) 2.1 k/uL (1.0-4.8); Lymphocytes % (A) 25 %; Mean Platelet Volume 8.9; Monocytes # (A) 0.4 k/uL (0-1.0); Monocytes % (A) 5 %; Neutrophils # (A) 5.3 k/uL (1.3-7.7); Neutrophils % (A) 65 %; Platelet Count 280 k/uL (150-450); RDW 11.8 % (11.5-15.5)
--- NOTE | 2021-09-13 06:48 | XR ---
EXAMINATION TYPE: XR chest 2V DATE OF EXAM: 09/13/2021 COMPARISON: Chest x-ray May 15, 2020 HISTORY: Chest pain. TECHNIQUE: Frontal and lateral views of the chest are obtained. FINDINGS: There is no suspicious new focal air space opacity, pleural effusion, or pneumothorax seen . The cardiac silhouette size remains within normal limits. The osseous structures are intact. Ove rlying EKG leads redemonstrated. Larger external device overlies the mirta. IMPRESSION: No acute cardiopulmonary process. No significant change from prior.
[2021-09-13 06:55] LABS: Prothrombin Time 10.9 sec (9.0-12.0)
[2021-09-13 07:00] LABS: ALT 22 U/L (4-34); African American GFR (CKD) >90 (>60 ml/min/1.73 sqM); Albumin 4.4 g/dL (3.5-5.0); Anion Gap 9 mmol/L; Blood Urea Nitrogen 8 mg/dL (7-17); Calcium 9.4 mg/dL (8.4-10.2); Carbon Dioxide 23 mmol/L (22-30); Chloride 106 mmol/L (98-107); Glucose 149 mg/dL (74-99); Lipase 101 U/L (23-300); Non-African American GFR(CKD) >90 (>60 ml/min/1.73 sqM); Sodium 138 mmol/L (137-145); Total Bilirubin 0.7 mg/dL (0.2-1.3); Total Protein 7.4 g/dL (6.3-8.2)
[2021-09-13 07:10] LABS: Potassium 3.6 mmol/L (3.5-5.1)
[2021-09-13 07:11] LABS: AST 30 U/L (14-36); Alkaline Phosphatase 40 U/L (38-126)
[2021-09-13 07:41] VITALS: RESP 18; TEMP 98.1
[2021-09-13 09:25] VITALS: BP 121/89; PULSE 77
== END 2021-09-13 09:24 | disposition home or self-care (01) ==
LOC: EC 06:15
DX: R00.2 Palpitations (principal); K21.9 Gastro-esophageal reflux disease without esophagitis; Z79.83 Long term (current) use of bisphosphonates; Z88.0 Allergy status to penicillin; Z88.9 Allergy status to unspecified drugs, medicaments and biological substances
CPT/HCPCS: 36415; 71046; 80053; 83690; 83735; 83880; 84484; 85025; 85379; 85610; 85730; 93005; 96360; 99285

== ENCOUNTER → 2022-07-23 | Outpatient (CLI) | payer OTHER ==
[2022-07-23 22:29] LABS: HCT 38.4 % (37.2-46.3); HGB 13.1 g/dL (12.0-15.0); MCH 30.8 pg (27.0-32.0); MCHC 34.1 g/dL (32.0-37.0); MCV 90.1 fL (80.0-97.0); Mean Platelet Volume 14.5 fL (9.5-12.2); NRBC Per 100 WBC 0 /100 WBCS (0.0-0.0); Platelet Count 207 X 10*3/uL (140-440); RBC 4.26 X 10*6/uL (4.10-5.20); RDW 11.5 % (11.5-14.5); WBC 7.74 X 10*3/uL (4.50-10.00)
[2022-07-23 23:12] LABS: ALT 53 U/L (8-44); AST 35 U/L (13-35); African American GFR (CKD) 130.3 (60.0-200.0); Albumin 4.6 g/dL (3.8-4.9); Albumin/Globulin Ratio 2.09 (1.60-3.17); Alkaline Phosphatase 64 U/L (41-126); BUN/Creat Ratio 20.83 Ratio (12.00-20.00); Blood Urea Nitrogen 12.5 mg/dL (9.0-27.0); Calcium 10.2 mg/dL (8.7-10.3); Carbon Dioxide 25.2 mmol/L (20.0-27.5); Chloride 103 mmol/L (96-109); Chol/HDL Ratio 2.05 Ratio; Globulin 2.2 g/dL (1.6-3.3); Glucose 83 mg/dL (70-110); LDL Cholesterol,Calculated 44.7 mg/dL (0.0-131.0); Non-African American GFR(CKD) 112.4 (60.0-200.0); Sodium 140 mmol/L (135-145); Total Protein 6.8 g/dL (6.2-8.2); VLDL Calculation 19.88 mg/dL (5.00-40.00)
== END | disposition home or self-care (01) ==
LOC: LABWHC1 12:22
PROVIDERS: ATTEND Physician Assistant
DX: Z00.00 Encounter for general adult medical examination without abnormal findings (principal)
CPT/HCPCS: 36415; 80053; 80061; 83036; 84443; 85027

== ENCOUNTER 2022-11-21 11:14 | Emergency (ER) | payer OTHER ==
[2022-11-21 11:22] VITALS: TEMP 98.2
[2022-11-21] MEDS ORDERED: SODIUM CHLORIDE 0.9% 1,000 ML IV STA (12:28)
[2022-11-21] MEDS ORDERED: ONDANSETRON 4 MG/2 ML VIAL IVP STA (12:28)
[2022-11-21] MEDS ORDERED: LORazepam 0.5 MG TAB PO STA (12:28)
[2022-11-21] MEDS ORDERED: MAG HYDROX/AL HYDROX/SIMETH 30 ML, HYOSCYAMINE ELIXIR 10 ML, LIDOCAINE VISCOUS 2% 10 ML PO STA ×3 (12:28)
[2022-11-21] MEDS ORDERED: ASPIRIN 81 MG PO STA (12:28)
[2022-11-21 12:45] LABS: Basophils % (A) 0 %; Eosinophils # (A) 0.1 k/uL (0-0.7); Eosinophils % (A) 2 %; HCT 41.2 % (34.0-46.0); HGB 14.2 gm/dL (11.4-16.0); Lymphocytes # (A) 1.3 k/uL (1.0-4.8); Lymphocytes % (A) 21 %; MCH 31.4 pg (25.0-35.0); MCHC 34.4 g/dL (31.0-37.0); MCV 91.4 fL (80.0-100.0); Mean Platelet Volume 8.9; Monocytes # (A) 0.4 k/uL (0-1.0); Monocytes % (A) 5 %; Neutrophils # (A) 4.5 k/uL (1.3-7.7); Neutrophils % (A) 70 %; Platelet Count 277 k/uL (150-450); RBC 4.51 m/uL (3.80-5.40); RDW 12.5 % (11.5-15.5); WBC 6.4 k/uL (3.8-10.6)
[2022-11-21 12:58] LABS: ALT 35 U/L (4-34); AST 30 U/L (14-36); African American GFR (CKD) >90 (>60 ml/min/1.73 sqM); Alkaline Phosphatase 54 U/L (38-126); Anion Gap 11 mmol/L; Blood Urea Nitrogen 7 mg/dL (7-17); Calcium 10.1 mg/dL (8.4-10.2); Carbon Dioxide 23 mmol/L (22-30); Chloride 108 mmol/L (98-107); Glucose 97 mg/dL (74-99); Lipase 75 U/L (23-300); Magnesium 2.3 mg/dL (1.6-2.3); Non-African American GFR(CKD) >90 (>60 ml/min/1.73 sqM); Potassium 3.6 mmol/L (3.5-5.1); Sodium 142 mmol/L (137-145); Total Bilirubin 0.9 mg/dL (0.2-1.3); Total Protein 8.1 g/dL (6.3-8.2)
--- NOTE | 2022-11-21 13:10 | XR ---
EXAMINATION TYPE: XR chest 2V DATE OF EXAM: 11/21/2022 12:51 PM COMPARISON: Chest radiographs from 09/13/2021 TECHNIQUE: XR chest 2V Frontal and lateral views of the chest. CLINICAL INDICATION:Female, 42 years old with history of Chest Pain; FINDINGS: Lungs/Pleura: There is no evidence of pleural effusion, focal consolidation, or pneumothorax. Pulmonary vascularity: Unremarkable. Heart/mediastinum: Cardiomediastinal silhouette is unremarkable. Musculoskeletal: No acute osseous pathology. IMPRESSION: No acute cardiopulmonary disease/process.
--- NOTE | 2022-11-21 13:39 | ED ---
General Adult HPI - General Chief complaint: Chest Pain Stated complaint: palpitations,hot flashes, anxiety Time Seen by Provider: 11/21/22 12:14 Source: patient, RN notes reviewed, old records reviewed Mode of arrival: ambulatory Limitations: no limitations - History of Present Illness Initial comments: Patient is a 42-year-old female who presents emergency Department complaining of palpitations, nausea, as well as left arm pain. Does have history of Graves' disease. States last night she began having left arm pain. 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 Has a history of PVCs. Denies any shortness of breath. Denies any nausea, vomiting. Denies any diarrhea. Denies any abdominal pain currently. He feels mildly nauseous. Denies any fevers, chills, cough. Does have a history of anxiety and believes that she is anxious at this time as well. Presents for further evaluation at this time. - Related Data Home Medications Medication Instructions Recorded Confirmed Omeprazole 20 mg PO DAILY 09/13/21 08/25/22 Verapamil HCl [Verapamil ER] 100 mg PO HS 08/25/22 08/25/22 clindamycin HCL [Cleocin] 150 mg PO Q6H 08/25/22 08/25/22 Allergies Allergy/AdvReac Type Severity Reaction Status Date / Time Penicillins Allergy Rash/Hives Verified 11/21/22 11:22 prochlorperazine edisylate Allergy Unknown Verified 11/21/22 11:22 [From Compazine] prochlorperazine maleate Allergy Unknown Verified 11/21/22 11:22 [From Compazine] Review of Systems ROS Statement: Those systems with pertinent positive or pertinent negative responses have been documented in the HPI. Review of Systems: CONST: Denies fever EYES: Denies blurry vision ENT: Denies nasal congestion C/V: Endorses palpitations RESP: Denies shortness of breath GI: Denies abdominal pain : Denies dysuria SKIN: Denies rash. MSK: Denies joint pain. NEURO: Endorses anxiety ROS Other: All systems not noted in ROS Statement are negative. Past Medical History Past Medical History: GERD/Reflux Additional Past Medical History / Comment(s): pvc's, anxiety, chronic lower bck pain History of Any Multi-Drug Resistant Organisms: None Reported Past Surgical History: Cholecystectomy, Hernia Repair Additional Past Surgical History / Comment(s): umbilical hernia repair as Past Anesthesia/Blood Transfusion Reactions: Motion Sickness Additional Past Anesthesia/Blood Transfusion Reaction / Comment(s): clausterphobia. pt stated has never recieved blood transfusions. Past Psychological History: Anxiety Smoking Status: Never smoker Past Alcohol Use History: None Reported Past Drug Use History: None Reported - Past Family History Mother Family Medical History: Myocardial Infarction ([place]) Additional Family Medical History / Comment(s): had first mi at ge 50 or 51 and 2nd mi at 55 or 56. smoker, brain anuerysm Father History Unknown: Yes Family Medical History: No Reported History General Exam - General Exam Comments Initial Comments: General: Appears in no acute distress. HEAD: Normal with no signs of head trauma. EYES: PERRLA, EOMI, conjunctiva normal, no discharge. ENT: Hearing grossly intact, normal oropharynx. RESPIRATORY: Clear breath sounds bilaterally. No wheezes, rales, or rhonchi. C/V: Regular rate and rhythm. S1 and S2 auscultated, no edema, peripheral pulses 2+ and intact throughout ABD: Abd is soft, nontender, nondistended EXT: Normal range of motion, no obvious deformity.Left shoulder is nontender on palpation. SKIN: No rashes or lesions observed on exposed skin. NEURO: Alert and oriented 4. Limitations: no limitations Course Vital Signs 11/21/22 11/21/22 11/21/22 11:18 12:13 15:03 Temperature 98.2 F Pulse Rate 102 H 80 Pulse Rate [ 98 Program Schedule Clerk ] Respiratory 20 16 Rate Blood Pressure 150/88 125/81 O2 Sat by Pulse 100 99 Oximetry Medical Decision Making - Medical Decision Making Was pt. sent in by a medical professional or institution (, PA, PRESCHOOL ASSISTANT PRINCIPAL, urgent care, hospital, or penitentiary...) When possible be specific @ -No Did you speak to anyone other than the patient for history (EMS, parent, family, police, friend...)? What history was obtained from this source @ -No Did you review nursing and triage notes (agree or disagree)? Why? @ -I reviewed and agree with nursing and triage notes Were old charts reviewed (outside hosp., previous admission, EMS record, old EKG, old radiological studies, urgent care reports/EKG's, penitentiary records)? Report findings @ -Old EKG was reviewed from September 2021 Differential Diagnosis (chest pain, altered mental status, abdominal pain women, abdominal pain men, vaginal bleeding, weakness, fever, dyspnea, syncope, headache, dizziness, GI bleed, back pain, seizure, CVA, palpatations, mental health, musculoskeletal)? @ -Differential Palpitations Ventricular arrhythmias, atrial arrhythmias, myocardial infarction, anemia, thyrotoxicosis, electrolyte imbalance, hypokalemia, pulmonary embolism, pulmonary disease, drugs, alcohol, anxiety, stress.... This is not meant to be an all-inclusive list. EKG interpreted by me (3pts min.). @ -As above X-rays interpreted by me (1pt min.). @ -Chest x-ray reveals no obvious acute cardiopulmonary process. CT interpreted by me (1pt min.). @ -None done U/S interpreted by me (1pt. min.). @ -None done What testing was considered but not performed or refused? (CT, X-rays, U/S, labs)? Why? @ -None What meds were considered but not given or refused? Why? @ -None Did you discuss the management of the patient with other professionals (professionals i.e. , PA, PRESCHOOL ASSISTANT PRINCIPAL, lab, RT, psych nurse, oncology social worker, laborer brush clearing, teacher, transportation security officer, supportive employment case manager)? Give summary @ -No Was smoking cessation discussed for >3mins.? @ -No Was critical care preformed (if so, how long)? @ -No Were there social determinants of health that impacted care today? How? (Homelessness, low income, unemployed, alcoholism, drug addiction, transportation, low edu. Level, literacy, decrease access to med. care, [place] [facility], rehab)? @ -No Was there de-escalation of care discussed even if they declined (Discuss DNR or withdrawal of care, Hospice)? DNR status @ -No What co-morbidities impacted this encounter? (DM, HTN, Smoking, COPD, CAD, Cancer, CVA, ARF, Chemo, Hep., AIDS, mental health diagnosis, sleep apnea, morbid obesity)? @ -None Was patient admitted / discharged? Hospital course, mention meds given and route, prescriptions, significant lab abnormalities, going to OR and other pertinent info. @ -Based on the patient's presentation and physical exam, I'm concerned for possible cardiopulmonary etiology for her current symptoms. Cannot rule out GI or anxiety either. However we will obtain cardiac primary labs as well as the TSH. Patient was in agreement this plan. She'll be symptomatically treated with a GI cocktail, Ativan, 324 millions of Ativan, and 1 L fluid bolus. Patient was in agreement with this plan. Other signs are within acceptable limits. EKG shows no signs of acute ischemia.Chest x-ray shows no obvious acute cardio pulmonary process. Patient's laboratory studies are remarkable for an negative d-dimer, undetectable troponin, as well as a improved TSH concerning Graves' disease. Remainder the patient's labs with him except for limits. On reevaluation, patient is feeling improved. We did discuss her workup. I do believe it is safer to be discharged home. She no longer as he has heart palpitations, and is feeling overall improved. Discussed strict return precautions. She was in agreement this plan. Patient is already on an acids and she will continue taking these at home with follow-up with her physician next week. We did discuss that it does appear that by treating her anxiety and her acid reflux ofvisit she didn't improve, but she should still follow-up. Heart scores low at 1-2. I instructed the patient to follow up with their PCP in the next 1-3 days. I explained that the patient should return to the emergency department if they experience any worsening symptoms. Strict return precautions were discussed with the patient. The patient expressed understanding of these instructions. I answered all questions that the patient had. The patient was discharged home in good condition with their prescriptions and follow up information. Undiagnosed new problem with uncertain prognosis? @ -No Drug Therapy requiring intensive monitoring for toxicity (Heparin, Nitro, Insulin, Cardizem)? @ -No Were any procedures done? @ -No Diagnosis/symptom? @ -Heart palpitations Acute, or Chronic, or Acute on Chronic? @ -Acute Uncomplicated (without systemic symptoms) or Complicated (systemic symptoms)? @ -Uncomplicated Side effects of treatment? @ -none Exacerbation, Progression, or Severe Exacerbation] @ -no Poses a threat to life or bodily function? @ -no Diagnosis/symptom? @ -GERD Acute, or Chronic, or Acute on Chronic? @ -Acute on chronic Uncomplicated (without systemic symptoms) or Complicated (systemic symptoms)? @ -Uncomplicated Side effects of treatment? @ -none Exacerbation, Progression, or Severe Exacerbation] @ -no Poses a threat to life or bodily function? @ -no Diagnosis/symptom? @ -Anxiety Acute, or Chronic, or Acute on Chronic? @ -Acute on chronic Uncomplicated (without systemic symptoms) or Complicated (systemic symptoms)? @ -Uncomplicated Side effects of treatment? @ -none Exacerbation, Progression, or Severe Exacerbation] @ -no Poses a threat to life or bodily function? @ -no - Lab Data Result diagrams: 11/21/22 12:33 11/21/22 12:33 Lab Results 11/21/22 11/21/22 11/21/22 Range/Units 12:33 12:33 12:33 WBC 6.4 (3.8-10.6) k/uL RBC 4.51 (3.80-5.40) m/uL Hgb 14.2 (11.4-16.0) gm/dL Hct 41.2 (34.0-46.0) % MCV 91.4 (80.0-100.0) fL MCH 31.4 (25.0-35.0) pg MCHC 34.4 (31.0-37.0) g/dL RDW 12.5 (11.5-15.5) % Plt Count 277 (150-450) k/uL MPV 8.9 Neutrophils % 70 % Lymphocytes % 21 % Monocytes % 5 % Eosinophils % 2 % Basophils % 0 % Neutrophils # 4.5 (1.3-7.7) k/uL Lymphocytes # 1.3 (1.0-4.8) k/uL Monocytes # 0.4 (0-1.0) k/uL Eosinophils # 0.1 (0-0.7) k/uL Basophils # 0.0 (0-0.2) k/uL PT (9.0-12.0) sec INR (<1.2) APTT (22.0-30.0) sec D-Dimer (<0.60) mg/L FEU Sodium 142 (137-145) mmol/L Potassium 3.6 (3.5-5.1) mmol/L Chloride 108 H (98-107) mmol/L Carbon Dioxide 23 (22-30) mmol/L Anion Gap 11 mmol/L BUN 7 (7-17) mg/dL Creatinine 0.60 (0.52-1.04) mg/dL Est GFR (CKD-EPI)AfAm >90 (>60 ml/min/1.73 sqM) Est GFR (CKD-EPI)NonAf >90 (>60 ml/min/1.73 sqM) Glucose 97 (74-99) mg/dL Calcium 10.1 (8.4-10.2) mg/dL Magnesium 2.3 (1.6-2.3) mg/dL Total Bilirubin 0.9 (0.2-1.3) mg/dL AST 30 (14-36) U/L ALT 35 H (4-34) U/L Alkaline Phosphatase 54 (38-126) U/L Troponin I (0.000-0.034) ng/mL Total Protein 8.1 (6.3-8.2) g/dL Albumin 5.0 (3.5-5.0) g/dL Lipase 75 (23-300) U/L TSH 0.016 L (0.465-4.680) mIU/L Urine Color Colorless Urine Appearance Clear (Clear) Urine pH 7.0 (5.0-8.0) Ur Specific [place] 1.001 (1.001-1.035) Urine Protein Negative (Negative) Urine Glucose (UA) Negative (Negative) Urine Ketones Negative (Negative) Urine Blood Negative (Negative) Urine Nitrite Negative (Negative) Urine Bilirubin Negative (Negative) Urine Urobilinogen <2.0 (<2.0) mg/dL Ur Leukocyte Esterase Negative (Negative) 11/21/22 11/21/22 Range/Units 12:33 13:55 WBC (3.8-10.6) k/uL RBC (3.80-5.40) m/uL Hgb (11.4-16.0) gm/dL Hct (34.0-46.0) % MCV (80.0-100.0) fL MCH (25.0-35.0) pg MCHC (31.0-37.0) g/dL RDW (11.5-15.5) % Plt Count (150-450) k/uL MPV Neutrophils % % Lymphocytes % % Monocytes % % Eosinophils % % Basophils % % Neutrophils # (1.3-7.7) k/uL Lymphocytes # (1.0-4.8) k/uL Monocytes # (0-1.0) k/uL Eosinophils # (0-0.7) k/uL Basophils # (0-0.2) k/uL PT 10.8 (9.0-12.0) sec INR 1.0 (<1.2) APTT 22.0 (22.0-30.0) sec D-Dimer 0.34 (<0.60) mg/L FEU Sodium (137-145) mmol/L Potassium (3.5-5.1) mmol/L Chloride (98-107) mmol/L Carbon Dioxide (22-30) mmol/L Anion Gap mmol/L BUN (7-17) mg/dL Creatinine (0.52-1.04) mg/dL Est GFR (CKD-EPI)AfAm (>60 ml/min/1.73 sqM) Est GFR (CKD-EPI)NonAf (>60 ml/min/1.73 sqM) Glucose (74-99) mg/dL Calcium (8.4-10.2) mg/dL Magnesium (1.6-2.3) mg/dL Total Bilirubin (0.2-1.3) mg/dL AST (14-36) U/L ALT (4-34) U/L Alkaline Phosphatase (38-126) U/L Troponin I <0.012 (0.000-0.034) ng/mL Total Protein (6.3-8.2) g/dL Albumin (3.5-5.0) g/dL Lipase (23-300) U/L TSH (0.465-4.680) mIU/L Urine Color Urine Appearance (Clear) Urine pH (5.0-8.0) Ur Specific [place] (1.001-1.035) Urine Protein (Negative) Urine Glucose (UA) (Negative) Urine Ketones (Negative) Urine Blood (Negative) Urine Nitrite (Negative) Urine Bilirubin (Negative) Urine Urobilinogen (<2.0) mg/dL Ur Leukocyte Esterase (Negative) - EKG Data -: EKG Interpreted by Me EKG Comments: 12-lead Electrocardiogram Interpretation Note EKG was reviewed and interpreted by myself. 12-lead ECG performed at 1327 is interpreted by me as revealing normal sinus rhythm at a rate of 89 beats per minute. Virgie is normal. OK interval Intervals 132 ms, QRS duration is 90 ms, QTc is 403 ms.. There were no acute ST or T wave abnormalities to suggest myocardial ischemia or injury. R wave progression across the precordium was satisfactory. By my interpretation this EKG is non-diagnostic for acute ischemia. When compared With prior EKG from September 2021, no significant change. Disposition Clinical Impression: Heart palpitations, GERD (gastroesophageal reflux disease), Anxiety Disposition: HOME SELF-CARE Condition: Good Instructions (If sedation given, give patient instructions): Heart Palpitations (ED), GERD (Gastroesophageal Reflux Disease) (ED) Is patient prescribed a controlled substance at d/c from ED?: No Referrals: Alexus Alcocer DO [Primary Care Provider] - 1-2 days Time of Disposition: 14:26
[2022-11-21 14:13] LABS: Appearance,Urine Clear (Clear); Bilirubin,Urine Negative (Negative); Blood,Urine Negative (Negative); Color,Urine Colorless; Glucose,Urine (UA) Negative (Negative); Ketones,Urine Negative (Negative); Leukocyte Esterase,Urine Negative (Negative); Nitrite,Urine Negative (Negative); Protein,Urine Negative (Negative); Specific Gravity,Urine 1.001 (1.001-1.035); Urobilinogen,Urine <2.0 mg/dL (<2.0)
[2022-11-21 14:31] LABS: Prothrombin Time 10.8 sec (9.0-12.0)
[2022-11-21 15:05] VITALS: BP 125/81; PULSE 80; RESP 16
== END 2022-11-21 15:07 | disposition home or self-care (01) ==
LOC: EC 11:14
DX: R00.2 Palpitations (principal); K21.9 Gastro-esophageal reflux disease without esophagitis; F41.9 Anxiety disorder, unspecified; Z79.899 Other long term (current) drug therapy; Z88.8 Allergy status to other drugs, medicaments and biological substances; Z88.0 Allergy status to penicillin
CPT/HCPCS: 36415; 93005; 85379; 80053; 83690; 83735; 84443; 84484; 85025; 85610; 85730; 81003; 71046; 99285; 96374; 96361; J2405; 96372

== ENCOUNTER → 2022-11-26 | Outpatient (CLI) | payer OTHER ==
[2022-11-26 21:58] LABS: T4, Free (Free Thyroxine) 1.35 ng/dL (0.800-1.800)
[2022-11-26 23:54] LABS: EBV-EA (IgG) <0.2 AI; EBV-EBNA(IgG) >8.0 AI; EBV-VCA (IgG) >8.0 AI; EBV-VCA (IgM) 0.3 AI
[2022-11-27 00:28] LABS: Gliadin AB IgA, Deaminated NEGATIVE (NEGATIVE); Gliadin AB IgA, Unit <0.2 U/mL; Gliadin AB IgG, Deaminated NEGATIVE (NEGATIVE); Gliadin AB IgG, Unit <0.4 U/mL
[2022-12-01 19:56] LABS: Peanut IgG <2.0 mcg/mL (<2.0); Soybean IgG <2.0 mcg/mL (<2.0)
[2022-12-01 19:57] LABS: Corn IgG 3.6 mcg/mL (<2.0); Cow's Milk IgG 34.8 mcg/mL (<2.0); Potato IgG 2.2 mcg/mL (<2.0); Tomato IgG 2.3 mcg/mL (<2.0); Wheat IgG 4.3 mcg/mL (<2.0)
== END | disposition home or self-care (01) ==
LOC: LABWHC1 12:45
PROVIDERS: ATTEND Family Medicine
DX: E07.9 Disorder of thyroid, unspecified (principal); R53.83 Other fatigue; R14.0 Abdominal distension (gaseous)
CPT/HCPCS: 36415; 82525; 82533; 82626; 83516; 84439; 84443; 84481; 86001; 86663; 86664; 86665

== ENCOUNTER → 2024-02-21 | Outpatient (CLI) | payer OTHER ==
--- NOTE | 2024-02-21 16:41 | CA ---
Exercise Nuclear Stress Test Report Name: Kelly Fox Exam Date: 02/21/2024 10:15 Exam Location: [place] Stress Ht (in): 67 Wt (lb): 170 BSA: 1.89 Ordering Phys: Nicole Delcid DO Referring Phys: Beatriz Nguyen PAC Technologist: BRENDEN Age: 44 Gender: F : 1980 Procedure CPT: Indications: I20.89 OTHER FORMS OF ANGINA PECTORIS ICD-10 Codes: Patient History: Chest pain, Palpitations and anxiety. Medications: Meds past 24 hrs: Pretest Chest Pain: STRESS TEST Jono Protocol Exercise Duration (min:sec): 07:[address] Depressions (mm): Angina Score: Garcia Score: Resting HR (bpm): 72 Peak HR (bpm): 172 Resting BP (mmHg): 111 / 83 Peak BP (mmHg): 164 / 62 MPHR: 176 Target HR: 150 % MPHR: 98 METS: 8.9 Total Dose: Peak Dose: Atropine: Double Product: 09478 BP Response: Stress Termination: TARGET HR REACHED/MAX EXERTION Stress Symptoms: CHEST PAIN 2,uneasy feeling Stress Summary: ECG ANALYSIS Resting ECG: Stress ECG: CONCLUSIONS Patient underwent exercise stress EKG with a Jono protocol Cardiolite stress test. Patient exercised into Stage 3 for a total of 7 minutes reaching a total of 8.9 METS. Patient's maximum heart rate was 172 which represented 97% age-predicted maximum heart rate. Stress EKG findings: At baseline patient's EKG showed normal sinus rhythm, normal axis, mild 0.[address] depressions in the inferior leads and V3 through V5.. At peak exercise, EKG showed mild accentuation of baseline EKG abnormalities. Conclusions: 1. Nonspecific stress EKG portion secondary baseline EKG abnormalities 2. Good exercise capacity. 3. Nuclear portion to be reported separately 4. Patient had atypical chest pain throughout procedure as well as with stress. Clinical correlation recommended. Dr. Ernesto Roldan DO (Electronically Signed) Final Date: 21 February 2024 16:40
--- NOTE | 2024-02-21 20:03 | NM ---
EXAMINATION TYPE: NM stress cardiolite complete DATE OF EXAM: 02/21/2024 COMPARISON: NONE HISTORY: Angina pectoris TECHNIQUE: After the intravenous administration of 9.77 mCi Tc 99m Sestamibi - Cardiolite resting SP ECT images acquired 60 minutes post injection. At peak stress 24 mCi Tc 99m Sestamibi - Stress images obtained 10 minutes post injection The patient was stressed with 0.4mg Lexiscan. FINDINGS: No fixed defects are evident No reversible stress defects on Spect images Wall motion is normal Ejection fraction is calculated to be 52 %. IMPRESSION: 1. No stress-induced ischemic changes
== END | disposition home or self-care (01) ==
LOC: RADNMMAIN 08:36
PROVIDERS: ATTEND Family Medicine
DX: I20.89 Other forms of angina pectoris (principal); R94.31 Abnormal electrocardiogram [ECG] [EKG]
CPT/HCPCS: 93017; 78452; A9500

== ENCOUNTER → 2024-02-24 | Outpatient (CLI) | payer OTHER ==
[2024-02-24 15:14] LABS: HCT 42.8 % (37.2-50.0); HGB 13.9 g/dL (12.0-17.0); MCH 31.5 pg (27.0-32.0); MCHC 32.5 g/dL (32.0-37.0); MCV 97.1 FL (80.0-97.0); Mean Platelet Volume 13.9 FL (9.5-12.2); NRBC Per 100 WBC 0 X 10*3/uL (0.00-0.01); Platelet Count 208 X 10*3/uL (140-440); RBC 4.41 X 10*6/uL (4.10-5.60); RDW 11.9 % (11.5-14.5); WBC 6.01 X 10*3/uL (4.50-10.00)
[2024-02-24 15:33] LABS: Progesterone 4.6 ng/mL
[2024-02-24 15:49] LABS: ALT 16 U/L (8-49); AST 20 U/L (13-35); Albumin 4.7 g/dL (3.8-4.9); Albumin/Globulin Ratio 1.81 Ratio (1.60-3.17); Alkaline Phosphatase 55 U/L (41-126); BUN/Creat Ratio 8.89 Ratio (12.00-20.00); Calcium 9.6 mg/dL (8.7-10.3); Carbon Dioxide 23.4 mmol/L (21.6-31.8); Chloride 104 mmol/L (96-109); Chol/HDL Ratio 1.71 Ratio; Globulin 2.6 g/dL (1.6-3.3); Glucose 99 mg/dL (70-110); LDL Cholesterol,Calculated 41.3 mg/dL (0.0-131.0); Potassium 4.6 mmol/L (3.5-5.5); Sodium 138 mmol/L (135-145); T4, Free (Free Thyroxine) 1.37 ng/dL (0.80-1.80); Total Bilirubin 0.7 mg/dL (0.3-1.2); Total Protein 7.3 g/dL (6.2-8.2)
[2024-02-24 15:55] LABS: C Reactive Protein, High Sens <0.150 mg/L (0.000-3.000)
== END | disposition home or self-care (01) ==
LOC: LABWHC1 09:51
PROVIDERS: ATTEND Family Medicine
DX: Z13.6 Encounter for screening for cardiovascular disorders (principal); E63.9 Nutritional deficiency, unspecified; R53.83 Other fatigue
CPT/HCPCS: 36415; 80053; 80061; 82306; 82627; 83036; 84144; 84439; 84443; 84481; 84630; 85027; 86141

== ENCOUNTER → 2024-10-12 | Outpatient (CLI) | payer OTHER ==
[2024-10-13 02:10] LABS: HCT 44.3 % (37.2-50.0); HGB 13.9 g/dL (12.0-17.0); MCH 30.1 pg (27.0-32.0); MCHC 31.4 g/dL (32.0-37.0); MCV 95.9 FL (80.0-97.0); NRBC Per 100 WBC 0 X 10*3/uL (0.00-0.01); Platelet Count 265 X 10*3/uL (140-440); RBC 4.62 X 10*6/uL (4.10-5.60); RDW 12.9 % (11.5-14.5); WBC 7.32 X 10*3/uL (4.50-10.00)
[2024-10-13 02:29] LABS: Erythrocyte Sedimentation Rate 10 mm/Hr (0-20)
[2024-10-13 03:16] LABS: ALT 22 U/L (8-49); AST 24 U/L (13-35); Albumin/Globulin Ratio 1.92 Ratio (1.60-3.17); Alkaline Phosphatase 51 U/L (41-126); BUN/Creat Ratio 7.89 Ratio (12.00-20.00); Blood Urea Nitrogen 7.1 mg/dL (9.0-27.0); C Reactive Protein <0.30 mg/dL (0.00-0.80); Calcium 10.3 mg/dL (8.7-10.3); Carbon Dioxide 22.8 mmol/L (21.6-31.8); Chloride 100 mmol/L (96-109); Globulin 2.6 g/dL (1.6-3.3); Glucose 89 mg/dL (70-110); Potassium 3.9 mmol/L (3.5-5.5); Rheumatoid Factor, Qnt <15 IU/mL (0-15); Sodium 137 mmol/L (135-145); T4, Free (Free Thyroxine) 1.26 ng/dL (0.80-1.80); Total Bilirubin 0.5 mg/dL (0.3-1.2); Total Protein 7.6 g/dL (6.2-8.2)
[2024-10-13 03:43] LABS: Thyroid Peroxidase Antibodies 16.1 U/mL (0.0-33.0)
== END | disposition home or self-care (01) ==
LOC: LABWHC1 15:17
PROVIDERS: ATTEND Family Medicine
DX: I49.3 Ventricular premature depolarization (principal); E05.00 Thyrotoxicosis with diffuse goiter without thyrotoxic crisis or storm; M25.50 Pain in unspecified joint; M62.81 Muscle weakness (generalized); F41.9 Anxiety disorder, unspecified
CPT/HCPCS: 36415; 80053; 84432; 84439; 84443; 84480; 85027; 85652; 86038; 86140; 86376; 86431; 86800

== ENCOUNTER 2025-02-28 10:46 | Emergency (ER) | payer OTHER ==
[2025-02-28 10:59] VITALS: RESP 18; TEMP 97.9
--- NOTE | 2025-02-28 12:31 | ED ---
Chest Pain HPI - General Chief Complaint: Chest Pain Stated Complaint: Chest/Arm Pain Time Seen by Provider: 02/28/25 11:22 Source: patient, RN notes reviewed Mode of arrival: ambulatory Limitations: no limitations - History of Present Illness Initial Comments: This is a 45-year-old female who presents to the emergency department for chest pain. States that over the last 2 weeks she has had intermittent pain in her left chest. Also states that she noticed pain near her left shoulder. Pain is not worse with exertion or movement. She has been unable to establish a pattern with this. States that it also feels different each time. Sometimes it is sharp and other times it is achy. Denies any shortness of breath associated with this. She does feel very anxious because her sister who is 47 recently had a heart attack. She denies any personal cardiac history herself. She did also have a stress test a year ago that was normal. MD Complaint: chest pain - Related Data Home Medications Medication Instructions Recorded Confirmed Omeprazole 20 mg PO DAILY 09/13/21 08/25/22 Verapamil HCl [Verapamil ER] 100 mg PO HS 08/25/22 08/25/22 clindamycin HCL [Cleocin] 150 mg PO Q6H 08/25/22 08/25/22 Allergies Allergy/AdvReac Type Severity Reaction Status Date / Time Penicillins Allergy Rash/Hives Verified 02/28/25 10:59 prochlorperazine edisylate Allergy Unknown Verified 02/28/25 10:59 [From Compazine] prochlorperazine maleate Allergy Unknown Verified 02/28/25 10:59 [From Compazine] Review of Systems ROS Statement: Those systems with pertinent positive or pertinent negative responses have been documented in the HPI. ROS Other: All systems not noted in ROS Statement are negative. Past Medical History Past Medical History: GERD/Reflux Additional Past Medical History / Comment(s): pvc's, anxiety, chronic lower bck pain History of Any Multi-Drug Resistant Organisms: None Reported Past Surgical History: Cholecystectomy, Hernia Repair Additional Past Surgical History / Comment(s): umbilical hernia repair as infant Past Anesthesia/Blood Transfusion Reactions: Motion Sickness Additional Past Anesthesia/Blood Transfusion Reaction / Comment(s): clausterphobia. pt stated has never recieved blood transfusions. Past Psychological History: Anxiety Smoking Status: Never smoker Past Alcohol Use History: None Reported Past Drug Use History: None Reported - Past Family History Mother Family Medical History: Myocardial Infarction ([place]) Additional Family Medical History / Comment(s): had first mi at ge 50 or 51 and 2nd mi at 55 or 56. smoker, brain anuerysm Father History Unknown: Yes Family Medical History: No Reported History General Exam Limitations: no limitations General appearance: alert, in no apparent distress Head exam: Present: atraumatic, normocephalic, normal inspection Respiratory exam: Present: normal lung sounds bilaterally. Absent: respiratory distress, wheezes, rales, rhonchi, stridor Cardiovascular Exam: Present: regular rate, normal rhythm GI/Abdominal exam: Present: soft. Absent: distended, tenderness Neurological exam: Present: alert, oriented X3, CN II-XII intact Psychiatric exam: Present: normal affect, normal mood Skin exam: Present: warm, dry, intact, normal color. Absent: rash Course Vital Signs 02/28/25 02/28/25 02/28/25 10:56 12:52 15:36 Temperature 97.9 F 97.9 F Pulse Rate 111 H 74 76 Respiratory 18 18 18 Rate Blood Pressure 138/82 118/79 116/70 O2 Sat by Pulse 100 100 100 Oximetry Chest Pain MDM - MDM This is a 45-year-old female who presents to the emergency department for chest pain. Was pt. sent in by a medical professional or institution? @ -No Did you speak to anyone other than the patient for history? @ -No Did you review nursing and triage notes? @ -Yes, and I agree, it is accurate with regards to the patient's symptoms. Were old charts reviewed? @ -Nuclear medicine Cardiolite stress test from 02/21/2024 revealing no ischemic changes. Differential Diagnosis? @ -Differential Chest Pain: Stable Angina, Unstable Angina, STEMI, NSTEMI Aortic Dissection, Pneumothorax, Musculoskeletal, Esophageal Spasm GERD, Cholecystitis, Pancreatitis, Zoster, this is not meant to be an all-inclusive list. EKG interpreted by me (3pts min.)? @ -EKG interpreted by me demonstrating the following: Sinus rhythm. Ventricular rate 92 bpm, WV interval 141 ms, QRS duration 100 ms, QTc 405 ms. X-rays interpreted by me (1pt min.)? @ -Chest x-ray obtained, my interpretation identifies no localized consolidations or infiltrates. CT interpreted by me (1pt min.)? @ -Not obtained U/S interpreted by me (1pt. min.)? @ -Not obtained What testing was considered but not performed? (CT, X-rays, U/S, labs)? Why? @ -None What meds were considered but not given? Why? @ -None Did you discuss the management of the patient with other professionals? @ -No Did you reconcile home meds? @ -No Was smoking cessation discussed for >3mins.? @ -No Was critical care preformed (if so, how long)? @ -No Were there social determinants of health that impacted care today? How? (Homelessness, low income, unemployed, alcoholism, drug addiction, transportation, low edu. Level, literacy, decrease access to med. care, [place] [facility], rehab)? @ -No Was there de-escalation of care discussed even if they declined? (Discuss DNR or withdrawal of care, Hospice)? @ -No What co-morbidities impacted this encounter? (DM, HTN, Smoking, COPD, CAD, Cancer, CVA, Hep., AIDS, mental health diagnosis, sleep apnea, morbid obesity)? @ -Anxiety Was patient admitted / discharged? @ -Discharged. Lab work unremarkable. Troponin negative. Chest x-ray reveals no acute process. Patient remained asymptomatic in the emergency department. Patient has no cardiac risk factors and has a heart score of 0. She did also have a normal stress test done a year ago. Discussed that as result she can be discharged home to follow-up on an outpatient basis. Patient was in agreement with this plan. Advised she try ibuprofen or Tylenol when the symptoms return and follow-up with her primary care provider. Patient discharged home in stable condition. Case discussed with ED attending Dr. Stack. Return precautions reviewed in depth, the patient is instructed to return to the emergency department with any new, worsening, or concerning symptoms. Patient verbalized understanding. Undiagnosed new problem with uncertain prognosis? @ -None Drug Therapy requiring intensive monitoring for toxicity (Heparin, Nitro, Insulin, Cardizem)? @ -None Were any procedures done? @ -None Diagnosis/symptom? @ -Chest pain Acute, or Chronic, or Acute on Chronic? @ -Acute Uncomplicated (without systemic symptoms) or Complicated (systemic symptoms)? @ -Uncomplicated Side effects of treatment? @ -None Exacerbation, Progression, or Severe Exacerbation] @ -Not applicable Poses a threat to life or bodily function? @ -No - Wells Criteria Clinical Symptoms of DVT: (0) No No Alternative Diagnosis: (0) No Immobilization of Surgery in Previous 4 Weeks: (0) No Previous DVT/PE: (0) No Hemoptysis: (0) No Malignancy: (0) No Disposition Clinical Impression: Chest pain Disposition: HOME SELF-CARE Instructions (If sedation given, give patient instructions): Chest Pain (ED), Costochondritis (ED), Noncardiac Chest Pain (ED) Additional Instructions: Return to the emergency department with any new, worsening, or concerning symptoms. Try alternating with ibuprofen and Tylenol if the pain returns. Follow up with your primary care provider in 1-2 days. Is patient prescribed a controlled substance at d/c from ED?: No Referrals: Alexus Alcocer DO [Primary Care Provider] - 1-2 days Time of Disposition: 15:08
[2025-02-28] MEDS: SODIUM CHLORIDE 0.9% 1,000 ML IV ONE (12:52)
[2025-02-28 12:58] LABS: Basophils # (A) 0.03 10*3/uL (0.00-0.10); Basophils % (A) 0.4 %; Eosinophils # (A) 0.06 10*3/uL (0.04-0.35); Eosinophils % (A) 0.8 %; HCT 41.0 % (37.2-46.3); HGB 13.9 g/dL (12.0-15.0); Lymphocytes # (A) 1.14 10*3/uL (0.90-5.00); Lymphocytes % (A) 15.1 %; MCH 31.0 pg (27.0-32.0); MCHC 33.9 g/dL (32.0-37.0); MCV 91.3 fL (80.0-97.0); Monocytes # (A) 0.49 10*3/uL (0.20-1.00); Monocytes % (A) 6.5 %; Neutrophils # (A) 5.83 10*3/uL (1.80-7.70); Neutrophils % (A) 77.1 %; Platelet Count 254 10*3/uL (140-440); RBC 4.49 10*6/uL (4.10-5.20); RDW 11.9 % (11.5-14.5); WBC 7.56 10*3/uL (4.50-10.00)
[2025-02-28 13:11] LABS: HCG,Qualitative Serum Not Detected
[2025-02-28 13:13] LABS: ALT 18 U/L (4-34); AST 27 U/L (14-36); African American GFR (CKD) >90 (>60 ml/min/1.73 sqM); Albumin 5.2 g/dL (3.5-5.0); Alkaline Phosphatase 69 U/L (38-126); Anion Gap 10 mmol/L; Blood Urea Nitrogen 6 mg/dL (7-17); Calcium 10.0 mg/dL (8.4-10.2); Carbon Dioxide 24 mmol/L (22-30); Chloride 107 mmol/L (98-107); Glucose 95 mg/dL (74-99); Magnesium 2.2 mg/dL (1.6-2.3); Non-African American GFR(CKD) >90 (>60 ml/min/1.73 sqM); Potassium 3.8 mmol/L (3.5-5.1); Sodium 141 mmol/L (137-145); Total Protein 8.3 g/dL (6.3-8.2)
[2025-02-28 13:31] LABS: INR 1.0 (<1.2); Partial Thromboplastin Time 23.7 sec (22.0-30.0); Prothrombin Time 10.7 sec (10.0-12.5)
--- NOTE | 2025-02-28 14:14 | XR ---
EXAMINATION TYPE: XR chest 2V DATE OF EXAM: 02/28/2025 1:42 PM COMPARISON: 11/21/2022 CLINICAL INDICATION: Female, 45 years old with history of Chest Pain, TECHNIQUE: XR chest 2V view(s) obtained. FINDINGS: The heart size is normal. The pulmonary vasculature is normal. The lungs are clear. IMPRESSION: 1. No acute pulmonary process. [facility], Workstation: [facility], 02/28/2025 2:12 PM
[2025-02-28 16:15] VITALS: BP 116/70; PULSE 76
== END 2025-02-28 15:36 | disposition home or self-care (01) ==
LOC: EC 10:46
DX: R07.9 Chest pain, unspecified (principal); F41.9 Anxiety disorder, unspecified; Z88.0 Allergy status to penicillin; Z88.8 Allergy status to other drugs, medicaments and biological substances
CPT/HCPCS: 36415; 71046; 80053; 83735; 84484; 84703; 85025; 85610; 85730; 93005; 96360; 99285